=== PATIENT | male | born 1940 | race Caucasian/White ===

== ENCOUNTER 2017-08-10 15:24 | Emergency (ER) | payer OTHER ==
[~2017-08-10] VITALS: Ht 185.4 cm; Wt 88.5 kg
[~2017-08-10 15:24] MED LIST: ADULT LOW DOSE81 MG PO; ATIVAN0.5 MG PO; ATIVAN1 MG PO; BYSTOLIC20 MG PO; CENTRUM COMPLE1 EACH PO; CENTRUM TABLET1 TAB PO; CRESTOR10 MG PO; CRESTOR20 MG PO; DIOVAN HCT 3201 EAC1 PO; DIOVAN320 MG PO; EFFIENT10 MG PO; HYDROCHLOROTHIA25 M1 PO; OCEAN45 ML NASAL; PLAVIX 75 MG TA75 M1 PO; POLYSACCHARIDE150 M2 PO; VITAMIN D1000 UNI1 PO; VITAMIN D400 UNI1 PO
[2017-08-10] MEDS ORDERED: LOSARTAN POTASS25 MG PO (15:43)
[2017-08-10] MEDS ORDERED: CARVEDILOL25 MG PO (15:43)
[2017-08-10] MEDS ORDERED: VENTOLIN HFA INH8 GM INH (15:44)
== END 2017-08-10 16:48 | disposition home or self-care (01) ==
LOC: ER 15:24
DX: S01.81XA Laceration without foreign body of other part of head, initial encounter (principal); S29.9XXA Unspecified injury of thorax, initial encounter; S09.90XA Unspecified injury of head, initial encounter; I10 Essential (primary) hypertension; E78.00 Pure hypercholesterolemia, unspecified; I25.2 Old myocardial infarction; F32.9 Major depressive disorder, single episode, unspecified; F10.99 Alcohol use, unspecified with unspecified alcohol-induced disorder; J44.9 Chronic obstructive pulmonary disease, unspecified; G89.29 Other chronic pain; Z95.5 Presence of coronary angioplasty implant and graft; Z98.890 Other specified postprocedural states; W18.09XA Striking against other object with subsequent fall, initial encounter; Y93.89 Activity, other specified; Y92.89 Other specified places as the place of occurrence of the external cause; Y99.8 Other external cause status

== ENCOUNTER 2019-01-08 18:34 | Emergency (ER) | payer OTHER ==
[~2019-01-08] VITALS: Ht 185.4 cm; Wt 86.6 kg
[~2019-01-08 18:34] MED LIST changes: +CARVEDILOL25 MG PO; +LOSARTAN POTASS25 MG PO; +VENTOLIN HFA INH8 GM INH
[2019-01-08 20:50] VITALS: BP 159/46
== END 2019-01-08 20:56 | disposition home or self-care (01) ==
LOC: ER 18:34
DX: R04.0 Epistaxis (principal); I10 Essential (primary) hypertension; E78.00 Pure hypercholesterolemia, unspecified; F32.9 Major depressive disorder, single episode, unspecified; M10.9 Gout, unspecified; M54.9 Dorsalgia, unspecified; G89.29 Other chronic pain; J44.9 Chronic obstructive pulmonary disease, unspecified; Z95.5 Presence of coronary angioplasty implant and graft

== ENCOUNTER 2019-02-21 22:03 | Emergency (ER) | payer OTHER ==
[~2019-02-21] VITALS: Ht 185.4 cm; Wt 85.7 kg
[2019-02-22 00:44] VITALS: BP 144/40
== END 2019-02-22 00:45 | disposition home or self-care (01) ==
LOC: ER 22:03
DX: R04.0 Epistaxis (principal); I10 Essential (primary) hypertension; E78.00 Pure hypercholesterolemia, unspecified; I73.9 Peripheral vascular disease, unspecified; F32.9 Major depressive disorder, single episode, unspecified; L40.9 Psoriasis, unspecified; J44.9 Chronic obstructive pulmonary disease, unspecified; G89.29 Other chronic pain; M54.9 Dorsalgia, unspecified; M10.9 Gout, unspecified; Z95.5 Presence of coronary angioplasty implant and graft; Z98.890 Other specified postprocedural states

== ENCOUNTER 2019-03-22 10:17 | Emergency (ER) | payer OTHER ==
[~2019-03-22] VITALS: Ht 177.8 cm; Wt 77.1 kg
[2019-03-22 10:36] LABS: HEMATOCRIT 31.3 % (42.0-52.0); HEMOGLOBIN 10.6 gm/dL (14.0-18.0); MCH 31.2 pg (26.0-34.0); MCV 91.8 fL (80.0-100.0); RBC 3.41 mil/uL (4.50-6.00); RDW 19.3 % (10.5-14.5); WBC 6.2 thou/uL (4.0-11.0)
[2019-03-22 10:52] LABS: ANION GAP 9 mmol/L (7-16); BUN 69 mg/dL (7-18); CALCIUM 8.5 mg/dL (8.5-10.1); CHLORIDE 94 mmol/L (98-107); CO2 23 mmol/L (21-32); CREATININE 1.8 mg/dL (0.7-1.3); GLUCOSE 106 mg/dL (74-106); POTASSIUM 4.4 mmol/L (3.5-5.1); SODIUM 126 mmol/L (136-145)
[2019-03-22 11:01] LABS: TROPONIN-I <0.06 ng/mL (<0.06)
[2019-03-22 11:22] LABS: ABSOLUTE NEUTROPHILS 4.7 thou/uL (1.4-8.2); PLATELET COUNT 82 thou/uL (150-400)
[2019-03-22 11:23] LABS: ANISOCYTOSIS 1+
[2019-03-22 13:15] VITALS: BP 135/48
--- NOTE | 2019-03-25 22:19 | EKG ---
[place] [address] [email or web address] [address] ELECTROCARDIOGRAM REPORT Name: MOJGANKARYNA Lawson Room #: DEP Kaz#: [id number] ������������������ Admission: 03/22/19 ������������������ Attend Phys: Discharge: 03/22/19 ������������������ Date of : 42 Report #: [id number] ����������������������������������������������������������������� [id number] THIS REPORT FOR: //name// [facility] ED Test Date: 2019-03-22 Test Time: 10:18:25 Pat Name: KARYNA ULRICH Department: Room: Gender: Bit Sharpener: : 1940 Requested By: Ponce Butterfield Order Number: [id number] MD: Vladimir Parry Measurements Intervals [place] Rate: 56 P: -49 MN: 128 QRS: 80 QRSD: 120 T: 10 QT: 474 QTc: 458 Interpretive Statements Sinus or ectopic atrial rhythm Probable left ventricular hypertrophy Compared to ECG 12/01/2013 07:08:06 Ectopic atrial rhythm now present Sinus rhythm no longer present T-wave abnormality no longer present Electronically Signed On 03-25-2019 22:19:35 CDT by Vladimir Parry [email or web address] ��������������������������������������������� <ELECTRONICALLY SIGNED> ���������������������������������������� By: Vladimir Parry MD ��������������������������������������������� 03/25/19 2219 Vladimir Parry MD /OLIVER
== END 2019-03-22 13:15 | disposition home or self-care (01) ==
LOC: ER 10:17
PROVIDERS: Emergency Medicine
DX: I95.9 Hypotension, unspecified (principal); E87.1 Hypo-osmolality and hyponatremia; R00.1 Bradycardia, unspecified; I10 Essential (primary) hypertension; E78.00 Pure hypercholesterolemia, unspecified; I73.9 Peripheral vascular disease, unspecified; F32.9 Major depressive disorder, single episode, unspecified; M10.9 Gout, unspecified; L40.9 Psoriasis, unspecified; J44.9 Chronic obstructive pulmonary disease, unspecified; G89.29 Other chronic pain; M54.9 Dorsalgia, unspecified; Z86.2 Personal history of diseases of the blood and blood-forming organs and certain disorders involving the immune mechanism; Z98.890 Other specified postprocedural states

== ENCOUNTER 2019-05-19 11:07 | Inpatient (IN) | payer OTHER ==
[~2019-05-19] VITALS: Ht 185.4 cm; Wt 81.2 kg
[2019-05-19 11:08] VITALS: BP 128/34
[2019-05-19 11:34] LABS: ABSOLUTE NEUTROPHILS 3.6 thou/uL (1.4-8.2); BASOPHILS 0.5 % (0.0-2.0); HEMATOCRIT 29.4 % (42.0-52.0); HEMOGLOBIN 10.2 gm/dL (14.0-18.0); LYMPHOCYTES 18.8 % (24.0-44.0); MCHC 34.6 g/dL (28.0-37.0); MCV 92.6 fL (80.0-100.0); MONOCYTES 10.3 % (1.0-8.0); PLATELET COUNT 106 thou/uL (150-400); POLYS 69.4 % (36.0-66.0); RBC 3.18 mil/uL (4.50-6.00); RDW 18.9 % (10.5-14.5); WBC 5.2 thou/uL (4.0-11.0)
[2019-05-19 11:45] LABS: ANION GAP 10 mmol/L (7-16); BUN 31 mg/dL (7-18); CALCIUM 9.2 mg/dL (8.5-10.1); CHLORIDE 94 mmol/L (98-107); CO2 25 mmol/L (21-32); CREATININE 1.4 mg/dL (0.7-1.3); GLUCOSE 150 mg/dL (74-106); SODIUM 129 mmol/L (136-145)
[2019-05-19 11:53] LABS: APTT 26.3 Seconds (24.5-32.8); PROTIME 10.4 Seconds (9.3-11.4)
[2019-05-19 11:56] LABS: ALBUMIN 3.5 g/dL (3.4-5.0); DIRECT BILIRUBIN 0.3 mg/dL (<0.1-0.3); LIPASE 212 U/L (73-393); SGOT 30 U/L (15-37); SGPT 31 U/L (30-65); TOTAL BILIRUBIN 0.9 mg/dL (<0.1-1.0); TOTAL PROTEIN 6.7 g/dL (6.4-8.2); TROPONIN-I <0.06 ng/mL (<0.06)
[2019-05-19 12:23] LABS: URINE BILIRUBIN NEGATIVE (Negative); URINE BLOOD NEGATIVE (Negative); URINE CLARITY CLEAR; URINE COLOR YELLOW; URINE GLUCOSE-RANDOM* NEGATIVE (Negative); URINE KETONES NEGATIVE (Negative); URINE LEUKOCYTES NEGATIVE (Negative); URINE NITRITE NEGATIVE (Negative); URINE PROTEIN (DIPSTICK) 2+ (Negative); URINE UROBILINOGEN 0.2 E.U./dl (0.2-1.0)
[2019-05-19 12:36] VITALS: BP 154/46
[2019-05-19 12:49] LABS: BACTERIA None Seen /HPF (None Seen); CASTS None Seen /LPF (None Seen); CRYSTALS None Seen /LPF (None Seen); SQUAMOUS 0-3 Few /LPF (0-3); URINE RBC None Seen /HPF (0-2)
[2019-05-19 12:50] LABS: URINE WBC None Seen /HPF (0-5)
[2019-05-19 15:16] VITALS: BP 177/56
[2019-05-19 18:18] VITALS: BP 152/49
--- NOTE | 2019-05-19 18:44 | NUR ---
ASSUMED CARE OF PT APPROX. 1500, PT A&OX4, VSS, DENIES PAIN. PT HAS SOA WITH EXERTION, HOB RAISED, 2L OF OXYGEN, NO SIGNS OF DISTRESS. FLUIDS AND ANTIBIOTICS RUNNING ORDERED. WILL CONTINUE TO MONITOR.
--- NOTE | 2019-05-20 02:56 | NUR ---
patient aox4 makes needs known. patient is on 2l of oxygen no soa or distress noted this shift. fall precaution in place. patient in bed asleep at this time breathing regular and unlaboured.
[2019-05-20 04:04] VITALS: BP 140/40
[2019-05-20 06:04] LABS: HEMATOCRIT 24.3 % (42.0-52.0); HEMOGLOBIN 8.4 gm/dL (14.0-18.0); MCH 31.7 pg (26.0-34.0); MCHC 34.4 g/dL (28.0-37.0); MCV 92.3 fL (80.0-100.0); RBC 2.64 mil/uL (4.50-6.00); RDW 18.9 % (10.5-14.5)
[2019-05-20 06:19] LABS: CALCIUM 8.2 mg/dL (8.5-10.1); POTASSIUM 4.1 mmol/L (3.5-5.1)
[2019-05-20 08:00] VITALS: BP 158/53
--- NOTE | 2019-05-20 09:47 | EKG ---
[place] [address] [place] [address] ELECTROCARDIOGRAM REPORT Name: KARYNA ULRICH Room #: 455-P ADM IN M.R.#: [id number] ������������������ Admission: 05/19/19 ������������������ Attend Phys: Allen Orantes Discharge: ������������������ Date of : 42 Report #: [id number] ����������������������������������������������������������������� [id number] THIS REPORT FOR: //name// [facility] ED Test Date: 2019-05-19 Test Time: 11:28:14 Pat Name: KARYNA ULRICH Department: Room: [facility] Gender: M Staff Rn: JERMAINE : 1940 Requested By: Jefferson Rdz Order Number: [id number] MD: Mikael Castelan Measurements Intervals [place] Rate: 59 P: 0 MT: QRS: 80 QRSD: 121 T: -89 QT: 430 QTc: 426 Interpretive Statements Baseline artifact limits interpretation Possible junctional rhythm Poor R wave progression Nonspecific ST and T wave abnormality No previous ECGs available for comparison Electronically Signed On 05-20-2019 9:47:15 CDT by Mikael Castelan [email or web address] ��������������������������������������������� <ELECTRONICALLY SIGNED> ���������������������������������������� By: Mikael Castelan MD, [facility] ��������������������������������������������� 05/20/19 0947 1128 27 Mikael Castelan MD, FACC /EPI
--- NOTE | 2019-05-20 12:50 | NUR ---
TOWARDS POC PT A/O X4, VSS, AFEBRILE, DENIES PAIN. PT SOB IMPROVING PER PT. REMAINED ON O2. NO CONCERNS VOICED. WILL CONTINUE TO MONITOR.
[2019-05-20 15:00] VITALS: BP 160/47
--- NOTE | 2019-05-21 01:02 | NUR ---
Assumed care at 1845. Pt resting in bed. AOX4. VSS. Pt is no longer on Oxygen. Gave him his sleeping pills. Requested not to be woken up for midnight vitals. Stated he hasnt had a good sleep for over a month. No identified needs at the moment. Call light within reach. Will continue to monitor.
[2019-05-21 05:14] VITALS: BP 149/52
[2019-05-21 08:03] VITALS: BP 180/55
[2019-05-21] MEDS ORDERED: CEFUROXIME250 MG PO (08:45)
--- NOTE | 2019-05-21 13:45 | NUR ---
Assumed pt care this am, pt is able to ambulate from his bed to the toilet and get to his recliner with ease and a steady gait. Pt was able to take a shower and shave on his own. No signs or distress or shortness of air has been noted. Though pt did express his concern on being DC when he feels he has not progressed well towards his goals and feels excatly the same as of when he entered. Pt is also questioning why another x-ray has not been done to see progress from initial adnission x-ray to pre DC since he is beibg DC today by Dr. rOantes and why a blood bank technician has not come as well. TExt DR. Orantes about this concern awaiting further instructions.
[2019-05-21 18:07] VITALS: BP 155/62
[2019-05-21 19:36] VITALS: BP 182/76
--- NOTE | 2019-05-22 04:48 | NUR ---
ASSUMED CARE OF PT @1900. PT A&OX4 THIS SHIFT DENIES PAIN, CHEST PAIN, N/V. ON 2L OF O2. BP ON ASSESSMENT IS 182/76 BP MEDS GIVEN. EVENING MEDS GIVEN AND POC DONE. PT STATED WANTED TO SLEEP WELL TONIGHT. ACTIVITIES SPACED OUT AND CARE PROVIDED. CALL LIGHT WITHIN REACH AND PT LETS NEEDS KNOWN. WILL CONTINUE TO MONITOR TILL EOS
[2019-05-22 05:37] VITALS: BP 188/72
[2019-05-22 07:40] VITALS: BP 187/76
--- NOTE | 2019-05-22 15:24 | NUR ---
PT ADMITTED RELATED TO HYPONATERMIA, PNUMONIA, WEAKNESS. CM REVIEWED CHART AND SPOKE WITH CARE TEAM. CM MET WITH PT AT BEDSIDE THIS DAY. PT INDICATED HE LIVES ALONE IN A HOUSE WITH 2 STEPS TO ENTER AND NO STEPS INSIDE. 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 PT INDICATED HE HAS HOME O2 THROUGH [employer] AND HAD WORN 2L NOC SHOTWELD OPERATOR. PT INDICATED HE HAS A CANE AND A WALKER AT HOME SHOULD HE NEED THEM. PT INDICATED HIS PCP IS DR. KRISTEN BILL AT [facility]. PT INDICATED HE ANTICIPATES RETURNING HOME ONCE MEDICALLY STABLE. CM TO FOLLOW INDICATED WITH DC PLANNING.
--- NOTE | 2019-05-22 18:57 | NUR ---
Assumed pt care this am. pt bp has been going down, lasix and other medication have been resumed. Pt denies any pain for this shift, pt is able to ambulate with a steady gait on his won with O2. Still experiences SOA upon exertion. POC followed, request for chamge of hospitalist made by the pt.
[2019-05-22 19:38] VITALS: BP 150/57
[2019-05-23 04:20] VITALS: BP 134/45
[2019-05-23 05:23] LABS: HEMATOCRIT 25.4 % (42.0-52.0); HEMOGLOBIN 8.6 gm/dL (14.0-18.0); MCH 31.3 pg (26.0-34.0); MCHC 33.7 g/dL (28.0-37.0); MCV 92.8 fL (80.0-100.0); RBC 2.73 mil/uL (4.50-6.00); RDW 18.3 % (10.5-14.5); WBC 9.9 thou/uL (4.0-11.0)
[2019-05-23 05:34] LABS: ALBUMIN 2.6 g/dL (3.4-5.0); CALCIUM 8.2 mg/dL (8.5-10.1); CREATININE 1.2 mg/dL (0.7-1.3); PHOSPHORUS 4.4 mg/dL (2.5-4.9); POTASSIUM 4.7 mmol/L (3.5-5.1)
--- NOTE | 2019-05-23 06:08 | NUR ---
ASSUMED CARE OF PT. @1900 PT A&OX4. DENIES PAIN. POC DONE AND MEDS GIVEN. BP MEDS ALSO GIVEN FOR MANAGEMENT. ABDOMEN SLIGHTLY DISTENDED. PT STABLE AND SLEPT THROUGH THE NIGHT WILL CONTINUE TO MONITOR TILL EOS
[2019-05-23 07:25] VITALS: BP 147/56
[2019-05-23 13:40] VITALS: BP 147/51
--- NOTE | 2019-05-23 16:03 | NUR ---
CARE TEAM INDICATED THAT PT WILL LIKELY BE MEDICALLY STABLE TO DC HOME TOMORROW. CM TO FOLLOW INDICATED WITH DC PLANNING.
--- NOTE | 2019-05-23 18:19 | HC ---
[facility] [place] [address] CONSULTATION Name: KARYNA ULRICH Room #: 455-P ADM IN M.R.#: [id number] Admission: 05/19/19 ������������������ Attend Phys: Allen Orantes Discharge: ������������������ Date of : 42 Report #: [id number] THIS REPORT FOR: //name// CC: FAM physician/PCP Allen Orantes PULMONARY CONSULTATION REFERRING PHYSICIAN: Dr. Orantes. REASON FOR REFERRAL: Pneumonia. HISTORY OF PRESENT ILLNESS: The patient is a 78-year-old white male who was admitted on 05/19/2019 with pneumonia. A pulmonary consultation was requested given no significant improvements. The patient has extensive medical history including recent repair of an abdominal aortic aneurysm at [facility]. He has smoked in the past, quit few years ago. He has never been told that he has chronic lung disease. He was seen by a gymnastics instructor at . Workup was not complete. He was in his usual state of health until about a week ago, started to develop increasing dyspnea. He does not remember having a productive cough. Denies any recent chest pain, nausea, vomiting, or diarrhea. Chest x-ray on admission revealed right upper lobe infiltrates. He is somewhat better since admission, but remains dyspneic. PAST MEDICAL HISTORY: Notable for coronary artery disease with past history of myocardial infarction in 2013, peripheral vascular disease including carotid artery stenosis, abdominal aortic aneurysm repair, endarterectomy involving the right femoral artery, stent placement in the left popliteal artery. Other vascular procedures including arthrectomy, cardiac stents, hypertension, hypercholesterolemia, depression, gout, history of tobacco use, quit a few years ago, atrophic left kidney, and iron deficiency anemia. PAST SURGICAL HISTORY: Status post prior back surgery, rotator cuff surgery in the left, tonsillectomy, and vein stripping. Vascular procedures as mentioned above. ALLERGIES: None to medications. HOME MEDICATIONS: Reviewed. This include Ativan 1 mg q.a.m., multivitamins, Crestor 20 mg once a day, hydrochlorothiazide 25 mg once a day, Coreg 25 mg p.o. b.i.d., losartan 12.5 mg once a day, and albuterol 2 puffs p.r.n. FAMILY HISTORY: Noncontributory. [facility] [address] [place] [address] CONSULTATION Name: KARYNA ULRICH Room #: 455-P [facility] IN .R.#: [id number] Admission: 05/19/19 ������������������ Attend Phys: Allen Orantes Discharge: ������������������ Date of : 42 Report #: [id number] SOCIAL HISTORY: Tobacco history as mentioned above. He denies any alcohol use. He is . REVIEW OF SYSTEMS: As mentioned above, otherwise 10-point system review negative. PHYSICAL EXAMINATION: GENERAL: He is awake, alert, in no distress. VITAL SIGNS: Temperature is 98 degrees Fahrenheit, pulse is 70, respiratory rate is 18, blood pressure 188/70 mmHg, and saturation 99%. HEENT: Normocephalic, atraumatic. NECK: Supple, without lymphadenopathy or thyromegaly. CHEST: Breath sounds are fair. Few scattered crackles in the bases. No wheezes. CARDIOVASCULAR: Normal S1, S2. There are no murmurs or gallop. There is no JVD, no carotid bruit. Pulses are 2+/4+ bilaterally. ABDOMEN: Soft, nontender, no organomegaly or masses felt. GENITOURINARY: Deferred. RECTAL: Deferred. EXTREMITIES: There is no edema, cyanosis, or clubbing. LABORATORY DATA: Chest x-ray was reviewed. Initial chest x-ray shows right upper lobe infiltrate, poor followup chest x-ray. Continue shows mild right upper lobe infiltrates. Electrolytes are normal. Creatinine is 1.0, on admission it was 1.4. Liver enzymes are grossly unremarkable. WBC 5000, hemoglobin is 10.2, and platelets mildly decreased. IMPRESSION: 1. Pneumonia, right upper lobe, slowly improving. 2. History of tobacco use. No past history of chronic obstructive pulmonary disease, but suspicious. 3. Coronary artery disease with prior stent placement, diastolic dysfunction. 4. Peripheral vascular disease as outlined above. RECOMMENDATION: Continue antibiotic therapy. Would suggest bronchodilator therapy. DVT and GI prophylaxis recommended. The patient should improve over time. We will recommend followup chest x-ray in approximately 2-3 weeks to assure clearance of the infiltrates. ��������������������������������������������� <ELECTRONICALLY SIGNED> ���������������������������������������� By: Shukri Ferrara MD ��������������������������������������������� 05/23/19 1819 16 0011 Shukri Ferrara MD /nt
[2019-05-23 19:13] VITALS: BP 127/71
--- NOTE | 2019-05-23 19:50 | NUR ---
Assumed pt care this am, abdominal distention and difficulty in breathing has been better for him today and was verbalized by the pt as well. VS have been stable anf BP is going down with in normal limits. I and O were monitored. Pt was able to ambulate the halls with a walker and with out O2 and there were not signs of distress. diet is well tolrated , POC followed. No signs of distress nor complaints have been noted for this shift. X-ray of the chest is for tomoorrow.
[2019-05-24 03:57] VITALS: BP 143/43
--- NOTE | 2019-05-24 04:24 | NUR ---
ASSUMED CARE OF PT AT 1900HRS. PT IS AOX4 AND CALLS FOR HELP NEEDED. PT IS UP AD MACHO AND DENIES ANY PAIN. NO S/S OF ACUTE DISTRESS. ANTICIPATE DISCHARGE IN THE AM. WILL CONTINUE TO MONITOR.
[2019-05-24 05:44] LABS: HEMATOCRIT 25.1 % (42.0-52.0); HEMOGLOBIN 8.6 gm/dL (14.0-18.0); MCH 31.3 pg (26.0-34.0); MCV 91.8 fL (80.0-100.0); RBC 2.74 mil/uL (4.50-6.00); RDW 17.6 % (10.5-14.5); WBC 8.2 thou/uL (4.0-11.0)
[2019-05-24 05:56] LABS: CALCIUM 8.4 mg/dL (8.5-10.1); CREATININE 1.2 mg/dL (0.7-1.3); POTASSIUM 4.6 mmol/L (3.5-5.1)
[2019-05-24 08:23] VITALS: BP 167/54
[2019-05-24] MEDS ORDERED: COREG25 MG PO (12:48)
[2019-05-24] MEDS ORDERED: LEVAQUIN 750 M750 MG PO (12:48)
[2019-05-24] MEDS ORDERED: MIRALAX17 GM PO (12:48)
[2019-05-24] MEDS ORDERED: LASIX 40 MG TAB40 M2 PO (12:48)
[2019-05-24] MEDS ORDERED: PREDNISONE 10 M10 MG PO (12:48)
[2019-05-24 13:42] VITALS: BP 167/54
[2019-05-24] MEDS ORDERED: TRAZODONE HCL50 MG PO (14:27)
--- NOTE | 2019-05-24 14:53 | NUR ---
PATIENT STATED FEELING MUCH BETTER TODAY. LUNGS DIMINISHED. UP INDEPENDENTLY AND TOLERATING WELL. STATED READY TO GO HOME. DISMISSED HOME IN STABLE CONDITION.
== END 2019-05-24 15:44 | disposition home or self-care (01) | DRG 193 ==
LOC: ER 11:07 → 4W 12:37 → EROBS 12:37 → 4W 14:04 → ENTRNSPT 05-24 14:30 → EDTRNSPTSTS 05-24 14:45 → 4W 05-24 15:44
PROVIDERS: Hospitalist; Nurse Practitioner; ADMIT Hospitalist
DX: J18.1 Lobar pneumonia, unspecified organism (principal); N17.0 Acute kidney failure with tubular necrosis; E87.1 Hypo-osmolality and hyponatremia; Q27.30 Arteriovenous malformation, site unspecified; I50.30 Unspecified diastolic (congestive) heart failure; J44.0 Chronic obstructive pulmonary disease with (acute) lower respiratory infection; E78.00 Pure hypercholesterolemia, unspecified; I73.9 Peripheral vascular disease, unspecified; F32.9 Major depressive disorder, single episode, unspecified; M10.9 Gout, unspecified; E61.1 Iron deficiency; E55.9 Vitamin D deficiency, unspecified; D64.9 Anemia, unspecified; G89.29 Other chronic pain; M54.9 Dorsalgia, unspecified; E86.1 Hypovolemia; M51.36 Other intervertebral disc degeneration, lumbar region; I11.0 Hypertensive heart disease with heart failure; I25.10 Atherosclerotic heart disease of native coronary artery without angina pectoris; Z87.891 Personal history of nicotine dependence; I25.2 Old myocardial infarction; Z95.820 Peripheral vascular angioplasty status with implants and grafts; Z95.5 Presence of coronary angioplasty implant and graft
CPT/HCPCS: 10040; 10045

== ENCOUNTER 2019-12-11 11:26 | Inpatient (IN) | payer OTHER ==
[~2019-12-11] VITALS: Ht 185.4 cm; Wt 88.8 kg
[~2019-12-11 11:26] MED LIST changes: +CEFUROXIME250 MG PO; +COREG25 MG PO; +LASIX 40 MG TAB40 M2 PO; +LEVAQUIN 750 M750 MG PO; +MIRALAX17 GM PO; +PREDNISONE 10 M10 MG PO; +TRAZODONE HCL50 MG PO
[2019-12-11 11:27] VITALS: BP 137/44
[2019-12-11 11:55] LABS: HEMATOCRIT 23.5 % (42.0-52.0); HEMOGLOBIN 7.8 gm/dL (14.0-18.0); MCH 32.5 pg (26.0-34.0); MCHC 33.2 g/dL (28.0-37.0); MCV 97.7 fL (80.0-100.0); PLATELET COUNT 113 thou/uL (150-400); RDW 15.3 % (10.5-14.5); WBC 5.7 thou/uL (4.0-11.0)
[2019-12-11 12:03] LABS: ANION GAP 6 mmol/L (7-16); BUN 38 mg/dL (7-18); CALCIUM 8.3 mg/dL (8.5-10.1); CHLORIDE 100 mmol/L (98-107); CO2 29 mmol/L (21-32); CREATININE 1.7 mg/dL (0.7-1.3); GLUCOSE 99 mg/dL (74-106); POTASSIUM 4.6 mmol/L (3.5-5.1); SODIUM 135 mmol/L (136-145)
[2019-12-11 12:13] LABS: ALBUMIN 3.3 g/dL (3.4-5.0); SGOT 24 U/L (15-37); SGPT 25 U/L (30-65); TOTAL BILIRUBIN 0.4 mg/dL (<0.1-1.0); TOTAL PROTEIN 6.1 g/dL (6.4-8.2); TROPONIN-I <0.06 ng/mL (<0.06)
[2019-12-11 13:06] LABS: ABSOLUTE NEUTROPHILS 4.2 thou/uL (1.4-8.2); PLATELET ESTIMATE NORMAL
[2019-12-11 13:18] VITALS: BP 181/58
[2019-12-11 15:59] VITALS: BP 177/61
[2019-12-11 16:14] VITALS: BP 185/78
[2019-12-11] MEDS ORDERED: FLEXERIL PO (16:32)
[2019-12-11] MEDS ORDERED: DOXAZOSIN MESYLA4 MG PO (16:33)
[2019-12-11] MEDS ORDERED: SINGULAIR 10 MG10 M1 PO (16:34)
[2019-12-11 19:20] VITALS: BP 146/64
[2019-12-11 23:29] VITALS: BP 148/54
[2019-12-12 04:09] VITALS: BP 155/59
[2019-12-12 04:26] LABS: CALCIUM 8.1 mg/dL (8.5-10.1); CREATININE 1.8 mg/dL (0.7-1.3); POTASSIUM 4.2 mmol/L (3.5-5.1)
[2019-12-12 04:35] LABS: HEMATOCRIT 21.7 % (42.0-52.0); HEMOGLOBIN 7.3 gm/dL (14.0-18.0); MCH 32.6 pg (26.0-34.0); MCHC 33.4 g/dL (28.0-37.0); MCV 97.5 fL (80.0-100.0); RBC 2.23 mil/uL (4.50-6.00); RDW 15.1 % (10.5-14.5); WBC 4.8 thou/uL (4.0-11.0)
--- NOTE | 2019-12-12 04:48 | NUR ---
Pt. stated he didn't sleep much despite sleep med. Flexeril given per his request for back spasm which he had for years. O2 at 3L/NC and maintaining O2 sat greater than 90%. No respiratory distress. HR has been regular with BBB and occasional PVC's. Voiding per toilet and at times urinal. UA specimen and sptum sample sent to lab. Bed alarm on for safety. Will continue to monitor.
[2019-12-12 07:10] VITALS: BP 138/49
[2019-12-12 11:12] VITALS: BP 151/58
--- NOTE | 2019-12-12 15:48 | 2DMMODE ---
[facility] [place] [address] 2 D/M-MODE ECHOCARDIOGRAM Name: KARYNA ULRICH Room #: 359-P ADM IN M.R.#: [id number] Admission: 12/11/19 Attend Phys: Ty Aden MD Discharge: Date of : 42 Report #: [id number] THIS REPORT FOR: cc: Rena Wright MD, Carnie MD Lundgren,Mikael Ramires MD [facility] ~ THIS REPORT FOR: //name// APPROVED REPORT Study performed: 12/12/2019 14:27:37 EXAM: Comprehensive 2D, Doppler, and color-flow Echocardiogram Patient Location: Echo lab Room #: 359 Status: routine BSA: 2.03 HR: 86 bpm BP: 138/49 mmHg Rhythm: NSR Other Information Study Quality: Good Indications COPD Atrial Fibrillation CAD Hypertension/HDD CABG 2D Dimensions RVDd: 37.85 mm IVSd: 14.08 (7-11mm) LVOT Diam: 20.38 (18-24mm) LVDd: 47.87 mm PWd: 13.95 (7-11mm) LVDs: 42.74 (25-40mm) Aortic Root: 31.32 mm IVC: 26.00 mm Volumes Left Atrial Volume (Systole) Single Plane 4CH: 95.16 mL Single Plane 2CH: 104.86 mL LA ESV Index: 55.00 mL/m2 [facility] [address] [place] [address] 2 D/M-MODE ECHOCARDIOGRAM Name: KARYNA ULRICH Room #: 359-P ADM IN M.R.#: [id number] Admission: 12/11/19 Attend Phys: Ty Aden MD Discharge: Date of : 42 Report #: [id number] Aortic Valve AoV Peak Ryan.: 2.04 m/s AO Peak Gr.: 16.61 mmHg LVOT Max P.92 mmHg LVOT Max V: 0.99 m/s ELIANE Vmax: 1.58 cm2 Mitral Valve E/A Ratio: 1.9 MV Decel. Time: 128.35 ms MV E Max Ryan.: 1.40 m/s MV A Ryan.: 0.74 m/s MV PHT: 37.22 ms IVRT: 59.98 ms Pulmonary Valve PV Peak Ryan.: 1.10 m/s PV Peak Gr.: 4.88 mmHg Pulmonary Vein P Vein S: 0.36 m/s P Vein A: 0.16 m/s P Vein D: 0.88 m/s P Vein A Dur.: 64.6 msec P Vein S/D Ratio: 0.41 Tricuspid Valve TR Peak Ryan.: 3.97 m/s TR Peak Gr.: 63.00 mmHg PA Pressure: 73.00 mmHg Left Ventricle The left ventricle is normal size. Mild concentric left ventricular hypertrophy. The left ventricular systolic function is normal. The left ventricular ejection fraction is within the normal range. LVEF is 50%. Mild hypokinesis involving the base of the inferior wall The left ventricular diastolic function is abnormal. Right Ventricle The right ventricle is normal size. The right ventricular systolic function is normal. Atria Left atrium is dilated. Right atrium is dilated. Aortic Valve TAVR prosthetic valve No aortic regurgitation is present. There is no aortic valvular stenosis. Mitral Valve [facility] [address] [address] 2 D/M-MODE ECHOCARDIOGRAM Name: KARYNA ULRICH Room #: 359-P ADM IN ..#: [id number] Admission: 12/11/19 Attend Phys: Ty Aden MD Discharge: Date of : 42 Report #: [id number] The mitral valve is normal in structure. Mild mitral regurgitation. No evidence of mitral valve stenosis. Tricuspid Valve The tricuspid valve is normal in structure. There is moderate tricuspid regurgitation. Estimated PAP 70 mmHg. There is severe pulmonary hypertension. Pulmonic Valve The pulmonary valve is normal in structure. There is no pulmonic valvular regurgitation. Great Vessels The aortic root is normal in size. IVC is dilated and collapses <50% with inspiration. Pericardium There is no pericardial effusion. <Conclusion> The left ventricular systolic function is normal. LVEF is 50%. Mild hypokinesis involving the base of the inferior wall Both atria are dilated. TAVR prosthetic valve. No aortic regurgitation or stenosis. The mitral valve is normal in structure. Mild mitral regurgitation. There is moderate tricuspid regurgitation. Estimated pulmonary artery pressure of 70 mmHg. There is no pericardial effusion. <ELECTRONICALLY SIGNED> By: Mikael Castelan MD, FACC 12/12/19 1547 1547 154 Mikael Castelan MD, FACC /INF
--- NOTE | 2019-12-12 17:25 | NUR ---
INITIAL ASSESSMENT: SW reviewed chart and spoke with nursing and attending physician. Pt was admitted from home due to pneumonia/acute on chronic respiratory failure. Pt with hx of iron deficiency. Pt sees Hem/Onc, Dr. Bernstein. Pt is currently on IV abx an IV steroids. SW met with pt and his sister at bedside. Introduced role of SW. Pt is alert/orientated x 4. Pt reports he lives at home alone. 2 steps to enter and No steps inside. Pt is on nocturnal O2. Home O2 provided by [employer]. Pt states he has a cane at home that he will use occasionally. Pt's PCP is Dr. Rena Wright at [facility]. No hx of HH services or post-acute placement. Pt's goal is to return home. SW is following to assist as needed with discharge planning.
--- NOTE | 2019-12-12 18:43 | NUR ---
ASSUMED PATIENT CARE AT 0700. NO DISDRESS NOTED. SLOWLY TOWARDS POC GOALS.
[2019-12-12 19:28] VITALS: BP 154/58
[2019-12-13 03:47] VITALS: BP 167/69
[2019-12-13 05:54] LABS: HEMATOCRIT 23.2 % (42.0-52.0); HEMOGLOBIN 7.8 gm/dL (14.0-18.0); MCH 33.1 pg (26.0-34.0); MCHC 33.8 g/dL (28.0-37.0); RBC 2.36 mil/uL (4.50-6.00); RDW 15.1 % (10.5-14.5); WBC 10.8 thou/uL (4.0-11.0)
[2019-12-13 06:03] LABS: CALCIUM 8.4 mg/dL (8.5-10.1); CREATININE 1.5 mg/dL (0.7-1.3); POTASSIUM 4.4 mmol/L (3.5-5.1)
--- NOTE | 2019-12-13 07:32 | NUR ---
PT MAKING SLOW PROGRESS TOWARDS GOALS. ON O2 AT 3L PER NC. DENIES ANY SOA WHILE AT REST. DOES REPORT THAT HE STILL GETS SOA WITH ACTIVITY. IN BED THROUGHOUT THE NIGHT.
[2019-12-13 07:37] VITALS: BP 158/70
[2019-12-13 11:07] VITALS: BP 151/62
[2019-12-13 15:36] VITALS: BP 153/44
--- NOTE | 2019-12-13 16:17 | NUR ---
assumed patient care at 0700. a/o x4. denies sob. progressing towards poc goals.
[2019-12-13 19:35] VITALS: BP 167/64
[2019-12-14 04:20] VITALS: BP 156/61
[2019-12-14 06:19] LABS: HEMATOCRIT 23.8 % (42.0-52.0); HEMOGLOBIN 7.8 gm/dL (14.0-18.0); MCHC 32.7 g/dL (28.0-37.0); MCV 97.7 fL (80.0-100.0); RBC 2.44 mil/uL (4.50-6.00); RDW 15.4 % (10.5-14.5); WBC 9.4 thou/uL (4.0-11.0)
[2019-12-14 06:39] LABS: CALCIUM 8.5 mg/dL (8.5-10.1); CREATININE 1.3 mg/dL (0.7-1.3); POTASSIUM 4.2 mmol/L (3.5-5.1)
[2019-12-14 08:03] VITALS: BP 168/69
--- NOTE | 2019-12-14 16:06 | NUR ---
SW reviewed chart and spoke with nursing and attending physician. Pt is progressing towards goals for discharge. Plan is for pt to discharge home when medically stable. No discharge needs identified at this time, but SW is available to assist should needs arise.
--- NOTE | 2019-12-14 16:20 | NUR ---
assumed patient care at 1300. a/o x4. no disdress noted. transfer to [facility] at 1600.
--- NOTE | 2019-12-14 16:47 | NUR ---
PT ARRIVED ON UNIT, AOX4, VSS. PT REPORTS BLE KNEE PAIN, GAVE TYLENOL PER ORDER. PT ON 2L/O2 VIA NC. PT TRANSFERRED TO BED WITH SB ASSIST. CALL LIGHT/PERSONAL ITEMS IN REACH. WILL CONTINUE TO MONITOR.
--- NOTE | 2019-12-15 05:17 | NUR ---
ASSUMED CARE OF PATIENT AT APPROX 1999. ASSESSMENT CHARTED. MEDICATIONS ADMINISTERED PER JAN. PATIENT IS A&OX4, VSS; O2 SATS WNL ON 2L. NO SOA NOTED AT THIS TIME. PATIENT C/O PAIN AT BACK; PAIN MEDICATION OFFERED-PATIENT OPTED FOR MUSCLE RELAXANT INSTEAD. PATIENT C/O "KNEES NOT WORKING TONIGHT". PATIENT WAS OFFERED URINAL AND DECIDED TO NOT GET UP THIS SHIFT. PATIENT WOULD LIKE TO DISCUSS KNEE DISCOMFORT WITH DR. SIMPSON. CBC AND BMP ORDERED THIS AM. ABX RUNNING ON R AC W NO ISSUES. PATIENT VOICES NO OTHER NEED AND WOULD LIKE TO REST TONIGHT. REQUESTED BREATHING TX HELD UNTIL MORNING. FALL PRECAUTIONS IN PLACE. PLAN IS TO D/C BACK HOME ONCE MEDICALLY STABLE. WILL CONTINUE TO MONITOR AND FOLLOW PLAN OF CARE.
--- NOTE | 2019-12-15 06:25 | NUR ---
THIS NURSE AGREES WITH ASSESSMENT AND NOTES BY SHEET METAL LAYOUT MECHANIC ON THIS PATIENT.
[2019-12-15 07:10] LABS: HEMATOCRIT 25.4 % (42.0-52.0); HEMOGLOBIN 8.2 gm/dL (14.0-18.0); MCH 31.8 pg (26.0-34.0); MCHC 32.4 g/dL (28.0-37.0); MCV 98.2 fL (80.0-100.0); RBC 2.59 mil/uL (4.50-6.00); RDW 15.4 % (10.5-14.5)
[2019-12-15 07:15] VITALS: BP 169/64
[2019-12-15 07:24] LABS: CALCIUM 8.5 mg/dL (8.5-10.1); CREATININE 1.4 mg/dL (0.7-1.3); POTASSIUM 4.2 mmol/L (3.5-5.1)
--- NOTE | 2019-12-15 13:25 | NUR ---
ASSUMED CARE OF PT AT 0700. PT AOX4, VSS, PAIN IN BLE WHEN AMBULATING BUT GOES AWAY WHEN HE SITS DOWN. PT PULLED OUT IV DURING SHOWER. NEW IV PLACED IN LEFT FA, ANTIBIOTIC & IRON THERAPY RECEIVED. O2 PER NC AT 2L, TOLERATING DIET. CALL LIGHT/PERSONAL ITEMS IN REACH. PT CALLS APPROP. WILL CONTINUE TO MONITOR.
[2019-12-15 17:25] VITALS: BP 183/68
--- NOTE | 2019-12-15 18:01 | NUR ---
PT BP 183/68 HR 67, CALLED DR. STRANGE RECEIVED ORDER FOR HYDRALAZINE 10MG IV. PT HAD NO OTHER S/S OF DISTESS. PT CURRENTLY EATING DINNER, WILL RECHECK AND MONITOR PT.
[2019-12-15 18:21] VITALS: BP 163/62
[2019-12-15 19:06] VITALS: BP 182/69
[2019-12-15 20:35] VITALS: BP 174/64
[2019-12-16 03:39] VITALS: BP 158/73
--- NOTE | 2019-12-16 06:35 | NUR ---
PATIENT ALERT AND ORIENTED X4. VOIDING PER URINAL. 02NC WITH NO SOA NOTED WHILE IN THE BED. BP ELEVATED AT BEGINNING OF SHIFT 182/69, MEDICATED AND BP THIS AM IS 158/73. IVPB INFUSED W/O COMPLICATION. PATIENT DOES WEAR 02NC AT HOME AND MAY DISCHARGE TODAY. RT TREATMENTS PER ORDER. WILL MONITOR.
[2019-12-16 06:45] LABS: CALCIUM 8.5 mg/dL (8.5-10.1); CREATININE 1.3 mg/dL (0.7-1.3); POTASSIUM 4.5 mmol/L (3.5-5.1)
[2019-12-16 08:46] VITALS: BP 176/72
--- NOTE | 2019-12-16 08:56 | NUR ---
PT REMAINS ON 2L NC-BASLEINE. REPORTS BREATHING EASIER POST BREATHING TREATMENT. EXPRESSES DESIRE TO DISCHARGE HOME TODAY. PT CONCERNED ABOUT HIS CREATININE, EXPRESSES PLAN TO F/U WITH HIS PROVIDERS OUTPATIENT TO MAINTAIN ADEQUATE KIDNEY FUNCTION. PT UPRIGHT IN BED EATING BREAKFAST, DENIES ANY NEEDS AT THIS TIME. VOIDING PER URINAL AT BEDSIDE. DENIES PAIN AT THIS TIME.
[2019-12-16 12:39] VITALS: BP 170/69
[2019-12-16] MEDS ORDERED: AUGMENTIN 875-1 EACH PO (14:22)
[2019-12-16 17:59] VITALS: BP 170/69
[2019-12-16 18:07] VITALS: BP 158/68
--- NOTE | 2019-12-20 11:21 | EKG ---
[facility] [place] [address] ELECTROCARDIOGRAM REPORT Name: KARYNA ULRICH Room #: 405-P [facility] IN M.R.#: [id number] Admission: 12/11/19 Attend Phys: Ty Aden MD Discharge: 12/16/19 Date of : 42 Report #: [id number] THIS REPORT FOR: cc: Rena Wright MD, Carnie MD Couchonnal,Vladimir Hawk MD ~ THIS REPORT FOR: //name// [facility] Test Date: 2019-12-12 Test Time: 08:26:58 Pat Name: KARYNA ULRICH Department: Room: 359 P Gender: M Stone Processing Machine Operator: Gil WU : 1940 Requested By: Sandy Claros Order Number: [id number] MD: Vladimir Parry Measurements Intervals [place] Rate: 93 P: -3 AL: 139 QRS: 100 QRSD: 166 T: -26 QT: 423 QTc: 527 Interpretive Statements Sinus rhythm Ventricular trigeminy RBBB and LPFB Borderline ST depression, lateral leads Compared to ECG 05/19/2019 11:28:14 Electronically Signed On 12-12-2019 8:45:43 PHARMACEUTICAL SCIENTIST by Vladimir Parry [email or web address] <ELECTRONICALLY SIGNED> By: Vladimir Parry MD 12/12/1944 5 5 Vladimir Parry MD /EPI
--- NOTE | 2019-12-20 11:21 | EKG ---
[facility] [place] [address] ELECTROCARDIOGRAM REPORT Name: KARYNA ULRICH Room #: 405-P [facility] IN M.R.#: [id number] Admission: 12/11/19 Attend Phys: Ty Aden MD Discharge: 12/16/19 Date of : 42 Report #: [id number] THIS REPORT FOR: cc: Rena Wright MD, Carnie MD Couchonnal,Vladimir Hawk MD ~ THIS REPORT FOR: //name// [facility] ED Test Date: 2019-12-11 Test Time: 11:36:17 Pat Name: KARYNA ULRICH Department: Room: 359 Gender: M Creative Coordinator: KANE : 1940 Requested By: Maria Eugenia Valencia Order Number: [id number] MD: Vladimir Parry Measurements Intervals [place] Rate: 65 P: MN: QRS: 89 QRSD: 165 T: -14 QT: 473 QTc: 492 Interpretive Statements sinus rhythm Right bundle branch block Inferior infarct, age indeterminate Baseline wander in lead(s) I,II,aVR,V6 Compared to ECG 05/19/2019 11:28:14 Electronically Signed On 12-12-2019 8:38:28 SUPERVISOR BUILDING MAINTENANCE by Vladimir Parry [email or web address] <ELECTRONICALLY SIGNED> By: Vladimir Parry MD 12/12/19 0838 1136 1136 Vladimir Parry MD /EPI
--- NOTE | 2019-12-20 11:22 | EKG ---
[facility] [place] [address] ELECTROCARDIOGRAM REPORT Name: KARYNA ULRICH Room #: 405-P [facility] IN M.R.#: [id number] Admission: 12/11/19 Attend Phys: Ty Aden MD Discharge: 12/16/19 Date of : 42 Report #: [id number] THIS REPORT FOR: cc: Rena Wright MD, Carnie MD Couchonnal,Vladimir Hawk MD ~ THIS REPORT FOR: //name// [facility] Test Date: 2019-12-13 Test Time: 07:32:51 Pat Name: KARYNA ULRICH Department: Room: 359 P Gender: M Craft Manager: MACI : 1940 Requested By: Giorgi Parham Order Number: [id number] MD: Vladimir Parry Measurements Intervals [place] Rate: 77 P: 22 NV: 233 QRS: 80 QRSD: 163 T: -16 QT: 418 QTc: 474 Interpretive Statements Sinus rhythm Atrial premature complex Prolonged NV interval Right bundle branch block Compared to ECG 12/12/2019 08:26:58 Electronically Signed On 12-13-2019 11:40:47 MONTESSORI TODDLER TEACHER by Vladimir Parry [email or web address] <ELECTRONICALLY SIGNED> By: Vladimir Parry MD 12/13/19 1140 0732 0732 Vladimir Parry MD /EPI
== END 2019-12-16 18:34 | disposition home or self-care (01) | DRG 177 ==
LOC: ER 11:26 → 3W 12:40 → EROBS 12:40 → 3W 16:01 → 4N 12-14 16:15
PROVIDERS: Internal Medicine Cardiovascular Disease; Nurse Practitioner Family; ADMIT Hospitalist
DX: J69.0 Pneumonitis due to inhalation of food and vomit (principal); N17.0 Acute kidney failure with tubular necrosis; J44.1 Chronic obstructive pulmonary disease with (acute) exacerbation; J44.0 Chronic obstructive pulmonary disease with (acute) lower respiratory infection; I13.0 Hypertensive heart and chronic kidney disease with heart failure and stage 1 through stage 4 chronic kidney disease, or unspecified chronic kidney disease; I47.1 Supraventricular tachycardia; I50.32 Chronic diastolic (congestive) heart failure; D64.9 Anemia, unspecified; I48.91 Unspecified atrial fibrillation; I73.9 Peripheral vascular disease, unspecified; E78.00 Pure hypercholesterolemia, unspecified; I65.29 Occlusion and stenosis of unspecified carotid artery; N26.1 Atrophy of kidney (terminal); F32.9 Major depressive disorder, single episode, unspecified; M10.9 Gout, unspecified; L40.9 Psoriasis, unspecified; I25.10 Atherosclerotic heart disease of native coronary artery without angina pectoris; E78.5 Hyperlipidemia, unspecified; M51.36 Other intervertebral disc degeneration, lumbar region; M54.9 Dorsalgia, unspecified; G89.29 Other chronic pain; G47.00 Insomnia, unspecified; N40.0 Benign prostatic hyperplasia without lower urinary tract symptoms; E55.9 Vitamin D deficiency, unspecified; N18.9 Chronic kidney disease, unspecified; D50.9 Iron deficiency anemia, unspecified; Z95.1 Presence of aortocoronary bypass graft; Z87.01 Personal history of pneumonia (recurrent); Z99.81 Dependence on supplemental oxygen; Z95.5 Presence of coronary angioplasty implant and graft; Z98.1 Arthrodesis status; Z90.89 Acquired absence of other organs; Z95.820 Peripheral vascular angioplasty status with implants and grafts; I25.2 Old myocardial infarction
CPT/HCPCS: 10790; 10879

== ENCOUNTER 2021-01-05 10:18 | Inpatient (IN) | payer OTHER ==
[~2021-01-05] VITALS: Ht 185.4 cm; Wt 73.5 kg
[~2021-01-05 10:18] MED LIST changes: +AUGMENTIN 875-1 EACH PO; +DOXAZOSIN MESYLA4 MG PO; +FLEXERIL PO; +SINGULAIR 10 MG10 M1 PO; -VITAMIN D1000 UNI1 PO; +Vitamin D 1000 UNIT PO
[2021-01-05 10:27] VITALS: BP 142/40
[2021-01-05 11:25] LABS: HEMOGLOBIN 6.9 gm/dL (14.0-18.0); MCV 92.2 fL (80.0-100.0); WBC 6.4 thou/uL (4.0-11.0)
[2021-01-05 11:26] LABS: ABSOLUTE NEUTROPHILS 4.8 thou/uL (1.4-8.2); BASOPHILS 0.8 % (0.0-2.0); EOSINOPHILS 2.1 % (0.0-3.0); HEMATOCRIT 21.4 % (42.0-52.0); LYMPHOCYTES 13.1 % (24.0-44.0); MCH 29.7 pg (26.0-34.0); MCHC 32.3 g/dL (28.0-37.0); MONOCYTES 9.1 % (1.0-8.0); PLATELET COUNT 132 thou/uL (150-400); POLYS 74.9 % (36.0-66.0); RBC 2.32 mil/uL (4.50-6.00); RDW 14.7 % (10.5-14.5)
[2021-01-05 11:32] LABS: ANION GAP 5 mmol/L (7-16); BUN 43 mg/dL (7-18); CALCIUM 8.6 mg/dL (8.5-10.1); CHLORIDE 102 mmol/L (98-107); CO2 31 mmol/L (21-32); CREATININE 1.7 mg/dL (0.7-1.3); GLUCOSE 271 mg/dL (74-106); POTASSIUM 4.3 mmol/L (3.5-5.1); SODIUM 138 mmol/L (136-145)
[2021-01-05 11:43] LABS: ALBUMIN 3.1 g/dL (3.4-5.0); DIRECT BILIRUBIN < 0.1 mg/dL (<0.1-0.2); LIPASE 262 U/L (73-393); SGOT 20 U/L (15-37); SGPT 23 U/L (16-63); TOTAL BILIRUBIN 0.4 mg/dL (0.2-1.0); TOTAL PROTEIN 6.1 g/dL (6.4-8.2); TROPONIN-I <0.06 ng/mL (<0.06)
--- NOTE | 2021-01-05 13:16 | EKG ---
[place] [address] [facility] [address] ELECTROCARDIOGRAM REPORT Name: KARYNA ULRICH Room #: [facility] [id number] Admission: 01/05/21 Attend Phys: Discharge: Date of : 42 Report #: [id number] [facility] ED Test Date: 2021-01-05 Test Time: 11:24:43 Pat Name: KARYNA ULRICH Department: Room: Gender: Manufacture Specialist: JOHNSON DIAZ : 1940 Requested By: Jefferson Rdz Order Number: [id number] MD: Vladimir Parry Measurements Intervals [place] Rate: 57 P: ME: QRS: 82 QRSD: 164 T: -40 QT: 474 QTc: 462 Interpretive Statements Junctional rhythm IVCD, consider atypical RBBB Compared to ECG 12/13/2019 07:32:51 Electronically Signed On 01-05-2021 13:16:08 MINING ENGINEERING TECHNOLOGIST by Vladimir Parry [email or web address] <ELECTRONICALLY SIGNED> By: Vladimir Parry MD 01/05/21 1316 1124 1124 Vladimir Parry MD /OLIVER
[2021-01-05 15:03] VITALS: BP 152/62; BP 155/55; BP 170/62; BP 175/64; BP 182/61
[2021-01-05 16:55] LABS: URINE BILIRUBIN NEGATIVE (Negative); URINE BLOOD NEGATIVE (Negative); URINE CLARITY CLEAR; URINE COLOR YELLOW; URINE GLUCOSE-RANDOM* NEGATIVE (Negative); URINE KETONES NEGATIVE (Negative); URINE LEUKOCYTES-REFLEX NEGATIVE (Negative); URINE NITRITE-REFLEX NEGATIVE (Negative); URINE PROTEIN (DIPSTICK) 2+ (Negative); URINE UROBILINOGEN 0.2 E.U./dl (0.2-1.0)
[2021-01-05 17:09] LABS: HYALINE CASTS 0-3 Few /LPF (None Seen); SQUAMOUS 0-3 Few /LPF (0-3); URINE RBC None Seen /HPF (0-2); URINE WBC-REFLEX None Seen /HPF (0-5)
[2021-01-05 17:10] LABS: CRYSTALS None Seen /LPF (None Seen)
[2021-01-05 17:11] LABS: BACTERIA-REFLEX 1-9 Few /HPF (None Seen); MUCUS 0-3 Light strn/LPF (None Seen)
[2021-01-05 18:07] VITALS: BP 175/54
--- NOTE | 2021-01-05 18:26 | NUR ---
ATTEMPTED TO CALL REPORT X2 FOR UNIT 351 WAS PLACED ON HOLD BOTH TIMES
[2021-01-05 18:35] VITALS: BP 199/70
[2021-01-05 19:48] VITALS: BP 198/82
[2021-01-05 19:57] LABS: HEMATOCRIT 25.9 % (42.0-52.0); HEMOGLOBIN 8.4 gm/dL (14.0-18.0)
[2021-01-05 23:55] VITALS: BP 180/58
[2021-01-06] MEDS ORDERED: CARVEDILOL25 MG PO (02:50)
[2021-01-06] MEDS ORDERED: FUROSEMIDE 40 M40 MG PO (03:00)
[2021-01-06] MEDS ORDERED: LORAZEPAM 1 MG T1 MG PO (03:01)
[2021-01-06] MEDS ORDERED: LIPITOR 40 MG T40 M1 PO (03:03)
[2021-01-06] MEDS ORDERED: ZETIA10 MG PO (03:05)
[2021-01-06] MEDS ORDERED: OCTREOTIDE100 MCG/2 SUBQ (03:08)
[2021-01-06] MEDS ORDERED: VOLTAREN GEL 1100 G2 TOP (03:10)
[2021-01-06] MEDS ORDERED: TYLENOL325 M1 PO (03:15)
[2021-01-06] MEDS ORDERED: NORCO5 PO (03:19)
[2021-01-06] MEDS ORDERED: SYMBICORT160 MCG/4. INH (03:20)
[2021-01-06] MEDS ORDERED: AMOXICILLIN 50500 MG PO (03:26)
[2021-01-06 04:22] LABS: HEMATOCRIT 24.8 % (42.0-52.0); HEMOGLOBIN 8.1 gm/dL (14.0-18.0); MCH 29.2 pg (26.0-34.0); MCHC 32.5 g/dL (28.0-37.0); MCV 89.7 fL (80.0-100.0); RBC 2.76 mil/uL (4.50-6.00); RDW 16.5 % (10.5-14.5)
[2021-01-06 04:36] LABS: CALCIUM 8.7 mg/dL (8.5-10.1); CREATININE 1.4 mg/dL (0.7-1.3); POTASSIUM 4.1 mmol/L (3.5-5.1)
[2021-01-06 05:04] VITALS: BP 157/52
--- NOTE | 2021-01-06 05:42 | NUR ---
PT ADMITTED FROM ER WITH PNEUMONIA AND ANEMIA. IUNIT PRBCS GIVEN IN ER HG BETTER AFTER AND NOW 8.1 THIS AM. RECONCIKLED PTS HOME MEDS. PT REFUSED SEVERAL ORDERED LAST NIGHT. HE STATED HE DOESNOT TAKE THOSE MEDS. NOTIFED HADOOP ENGINEER OF CURRENT MED RECONCILIATION LIST. PT STATED HE HAS SOME ALLERGIES TO MEDS NOT LISTED INCOMPUTER. WILL UPDATE. ORIENTED PT TO . CURRENTLY UNLABORED ON 3LNC. HE STATED HE WEARS 2- L AT HOME. LASIX GIVEN ORDERED. VOIDING CLEAR YELLOW URINE. CAREPLAN INITIATED.
[2021-01-06 07:04] VITALS: BP 189/75
--- NOTE | 2021-01-06 09:21 | NUR ---
INITIAL ASSESSMENT: Received consult for discharge planning. SW reviewed chart and spoke with nursing and attending physician. Pt was admitted from home due to pneumonia/anemia. Pt had blood transfusion. Pt placed in Enhanced Isolation to r/o COVID. Pt had negative COVID test on 01/05. Cardiology consulted today. SW spoke with pt via phone. Introduced role of SW. Pt is alert/orientated x 4. Pt reports he lives at home alone. 2 steps to enter and No steps inside. Pt is on nocturnal O2. Home O2 provided by [employer]. Pt has a concentrator and portable tanks available. Pt states he has a cane at home that he will use occasionally. Pt's PCP is Dr. Rena Wright at [facility]. Pt sees Dr. Bernstein for Hem/Onc as an outpatient. No hx of HH services or post-acute placement. Plan is for to return home when medically stable. SW is following to assist as needed with discharge planning.
--- NOTE | 2021-01-06 11:44 | EKG ---
[place] [address] [facility] [place] [address] ELECTROCARDIOGRAM REPORT Name: KARYNA ULRICH Room #: 351-P ADM IN M.R.#: [id number] Admission: 01/05/21 Attend Phys: Sonal Kendrick MD Discharge: Date of : 42 Report #: [id number] [facility] ED Test Date: 2021-01-05 Test Time: 11:26:52 Pat Name: KARYNA ULRICH Department: Room: 351 P Gender: M Penology Teacher: JOHNSON DIAZ : 1940 Requested By: Sonal Kendrick Order Number: [id number] MD: Regis Colin Measurements Intervals [place] Rate: 59 P: AR: QRS: 79 QRSD: 161 T: -40 QT: 485 QTc: 481 Interpretive Statements Junctional rhythm IVCD, consider atypical RBBB Probable inferior infarct, age indeterminate Baseline wander in lead(s) V5 Compared to ECG 01/05/2021 11:24:43 No significant change Electronically Signed On 01-06-2021 11:44:25 AIR QUALITY MANAGER by Regis Colin [email or web address] <ELECTRONICALLY SIGNED> By: Regis Colin MD, [facility] 01/06/21 1144 1126 1126 Regis Colin MD, [facility] /EPI
[2021-01-06 12:53] VITALS: BP 189/75
[2021-01-06] MEDS ORDERED: ALBUTEROL2.5 MG/0.5 INH (13:16)
[2021-01-06] MEDS ORDERED: MIRALAX17 GM PO (13:16)
[2021-01-06] MEDS ORDERED: CYCLOBENZAPRINE5 MG PO (13:16)
[2021-01-06] MEDS ORDERED: LASIX 40 MG TAB40 M1 PO (13:16)
[2021-01-06] MEDS ORDERED: VITAMIN D325 MC1 PO (13:16)
[2021-01-06] MEDS ORDERED: ATORVASTATIN CA10 MG PO (13:16)
[2021-01-06] MEDS ORDERED: AUGMENTIN 875-1 EACH PO (13:16)
[2021-01-06] MEDS ORDERED: HYDRALAZINE 2525 M1 PO (13:22)
--- NOTE | 2021-01-06 13:57 | 2DMMODE ---
[facility] [place] [address] 2 D/M-MODE ECHOCARDIOGRAM Name: KARYNA ULRICH Room #: 351-P ADM IN M.R.#: [id number] Admission: 01/05/21 Attend Phys: Sonal Kendrick MD Discharge: Date of : 42 Report #: [id number] THIS REPORT FOR: cc: Rena Wright MD, Carnie MD Lundgren,Mikael Ramires MD [facility] ~ APPROVED REPORT Study performed: 01/06/2021 12:47:53 EXAM: Comprehensive 2D, Doppler, and color-flow Echocardiogram Patient Location: Bedside Room #: 351 Status: routine BSA: 1.95 HR: 62 bpm BP: 189/75 mmHg Rhythm: RBBB Other Information Study Quality: Good Technically limited study due to lung disease/interference. Indications Congestive Heart Failure Dyspnea Hx: TAVR, WA, CABG, stents, Afib, CHF, COPD, PVD, HTN, HLP. 2D Dimensions RVDd: 38.04 mm IVSd: 12.29 (7-11mm) LVDd: 48.97 mm PWd: 11.63 (7-11mm) Aortic Root: 27.24 mm Volumes Left Atrial Volume (Systole) Single Plane 4CH: 85.75 mL Single Plane 2CH: 80.50 mL LA ESV Index: 45.00 mL/m2 Aortic Valve AoV Peak Ryan.: 2.82 m/s AO Peak Gr.: 31.82 mmHg LVOT Max P.34 mmHg [facility] [address] [place] [address] 2 D/M-MODE ECHOCARDIOGRAM Name: ULRICHKARYNA Room #: 351-P ADM IN .R.#: [id number] Admission: 01/05/21 Attend Phys: Sonal Kendrick MD Discharge: Date of : 41 Report #: [id number] AO Mean Gr.: 11.34 mmHg AO V2 Mean: 1.50 m/s LVOT Max V: 0.77 m/s AO V2 VTI: 56.82 cm Mitral Valve E/A Ratio: 2.4 MV Decel. Time: 199.99 ms MV E Max Ryan.: 1.28 m/s MV A Ryan.: 0.54 m/s MV PHT: 58.00 ms Pulmonary Valve PV Peak Ryan.: 1.09 m/s PV Peak Gr.: 4.75 mmHg Pulmonary Vein P Vein S: 0.28 m/s P Vein D: 0.84 m/s P Vein S/D Ratio: 0.33 Tricuspid Valve TR Peak Ryan.: 3.26 m/s RAP Estimate: 10.00 mmHg TR Peak Gr.: 42.47 mmHg PA Pressure: 43.00 mmHg Left Ventricle The left ventricle is normal size. Mild hypokinesis of the base of the inferior wall Mild concentric left ventricular hypertrophy. Left ventricular systolic function is normal. LVEF is 60-65%. Moderate diastolic dysfunction Right Ventricle The right ventricle is normal size. The right ventricular systolic function is normal. Atria Moderate biatrial enlargement. Aortic Valve History of TAVR. Peak pressure gradient of 32mmHg; mean of 11mmHg. No aortic regurgitation is present. Mitral Valve Mild mitral annular calcification. Mild mitral regurgitation. No evidence of mitral valve stenosis. Tricuspid Valve [facility] [address] [place] [address] 2 D/M-MODE ECHOCARDIOGRAM Name: ULRICHKARYNA Room #: 351-P [facility] IN ..#: [id number] Admission: 01/05/21 Attend Phys: Sonal Kendrick MD Discharge: Date of : 41 Report #: [id number] The tricuspid valve is normal in structure. Mild to moderate tricuspid regurgitation. Estimated PAP is 45mmHg. Pulmonic Valve The pulmonary valve is normal in structure. Trace pulmonic regurgitation. Great Vessels The aortic root is normal in size. The ascending aorta is normal in size. IVC is dilated and collapses >50% with inspiration. Pericardium There is no pericardial effusion. <Conclusion> Left ventricular systolic function is normal. Mild hypokinesis of the base of the inferior wall LVEF is 60-65%. Moderate diastolic dysfunction Moderate biatrial enlargement. History of TAVR. Peak pressure gradient of 32mmHg; mean of 11mmHg. No aortic regurgitation Mild mitral annular calcification. Mild mitral regurgitation. Mild to moderate tricuspid regurgitation. Estimated pulmonary artery pressure of 45mmHg. There is no pericardial effusion. <ELECTRONICALLY SIGNED> By: Mikael Castelan MD, [facility] 01/06/21 135 135 135 Mikael Castelan MD, FAC /INF
[2021-01-06 14:04] VITALS: BP 182/64
[2021-01-06 15:19] VITALS: BP 174/58
[2021-01-06 15:33] VITALS: BP 189/75
--- NOTE | 2021-01-07 11:31 | HC ---
[facility] [place] [address] CONSULTATION Name: KARYNA ULRICH Room #: 351-P [facility] IN M.R.#: [id number] Admission: 01/05/21 Attend Phys: Sonal Kendrick MD Discharge: 01/06/21 Date of : 41 Report #: [id number] THIS REPORT FOR: cc: Rena Wright MD, Carnie MD McKittrick,Marbin Wang MD ~ DATE OF SERVICE: 01/06/2021 REASON FOR CONSULTATION: Anemia. HISTORY OF PRESENT ILLNESS: The patient is a 80-year-old male that I follow with a history of iron deficiency anemia and chronic kidney disease. The patient had been seen in the office last Tuesday or about 4 days ago, at which time, his hemoglobin was on 6.9. We will arrange for transfusion, which he did receive, but did not feel much better. He had felt worse yesterday. We suggested he come to the Emergency Room for evaluation. Here, there is a question about atelectasis versus pneumonitis and also anemia. He has now received a pint of blood. Feels much better with hemoglobin around 8.1. Note that from the office, his B12 and folate came back replete. He also received IV iron, one of 2 doses with the second to be given next Tuesday. Hopefully, between the erythropoietin administration, receives monthly in the office the iron. His hemoglobin production improved. The patient denies any recent fevers, chills, arm or leg swelling. He does have weakness of a general nature. His appetite has been off a little bit. No vomiting. He does not see blood in his urine or stool. No skin rash. He does have chronic thin skin and has some bruising and ecchymosis from that. SOCIAL HISTORY: The patient's about a year ago. One of his daughters is planning on moving to [place] because of her 's job in the hospital administration. PAST MEDICAL HISTORY: Notable for chronic kidney disease, uses creatinine around 1.3, also history of arteriovenous malformation small intestine followed by DOMINGO DÍAZ with periodic GI evaluations and cautery, also has been on Sandostatin in the past. Also, history of coronary artery disease with stent placement, history of carotid atherosclerosis, COPD, diastolic heart failure, essential hypertension, history of non-STEMI, hyperlipidemia, nephrolithiasis, pulmonary hypertension, peripheral vascular disease, restless legs syndrome and also transcatheter aortic valve replacement in 06/2016. CURRENT MEDICATIONS: Includes lorazepam 1 mg daily, furosemide 40 mg daily, atorvastatin 10 mg daily, cholecalciferol 1000 units at bedtime, montelukast 10 mg at bedtime, trazodone 50 mg at bedtime, losartan 12.5 b.i.d., cyclobenzaprine 5 at bedtime, carvedilol 37.5 b.i.d., albuterol sulfate 2.5 mg every 6 hours p.r.n. inhalation, nasal saline nasal spray q.4 hours p.r.n., Tylenol p.r.n., [address] [address] CONSULTATION Name: KARYNA ULRICH Room #: 351-P [facility] IN M.R.#: [id number] Admission: 01/05/21 Attend Phys: Sonal Kendrick MD Discharge: 01/06/21 Date of : 42 Report #: [id number] zolpidem 5 mg at bedtime p.r.n., MiraLax 17 grams daily p.r.n., Zofran p.r.n., lorazepam had been given once. PHYSICAL EXAMINATION: GENERAL: The patient appears his stated age. He is an elderly man, lying comfortably in a general Med/Surg bed. VITAL SIGNS: His height is reported as 6 feet 1 inches or 185.4 cm, weight 162 pounds or 73.7 kilograms. Blood pressure today is at one time 157/52 and another time 189/75, O2 sat 99-100%, respirations 16 or 18, pulse 66 or 60, temperature is 98 or 99.1. HEENT: Face is symmetrical. MOOD: He is alert, conversant, talkative. NEUROLOGIC: Face is symmetrical. Speech and thought pattern normal. Moving arms and legs appropriately. LYMPHATICS: No enlarged lymph nodes in the supraclavicular, cervical, axillary or inguinal region. ABDOMEN: Scaphoid. No obvious masses. EXTREMITIES: Without clubbing, cyanosis. There is perhaps trace edema. SKIN: He does have some chronic ecchymosis and bruising. LABORATORY DATA: Lab results here notable for creatinine of 1.4. Electrolytes are fairly normal. Liver functions: AST, ALT, total bilirubin normal. Alkaline phosphatase slightly elevated at 152. Total protein slightly low at 6.1, albumin 3.1. White count 7, hemoglobin after transfusion 8.1, MCV 89.2, platelets 138. No acute changes on lab today. Chest x-ray had raised a question of either atelectasis or infiltrate. ASSESSMENT AND PLAN: 1. Anemia, multifactorial, likely related to iron deficiency and chronic kidney disease, status post transfusion, improved, has now received 1 of 2 doses of IV iron as an outpatient is scheduled for second dose this next Tuesday in 3 days. Continue same. 2. Chronic kidney disease. Creatinine is stable. 3. History of arteriovenous malformations in the small intestine. No obvious blood in stool, but that is usually not seen with this patient. Periodic management by GI at also outpatient Sandostatin. 4. Chest x-ray abnormality. Defer to others concerning CAT scan if creatinine improves. 5. Coronary artery disease with stent placement in the past. No elevated BNP. We will defer to others significance of this. 6. Hyperlipidemia, meds per others. 7. Peripheral vascular disease. Management per others. 8. Restless legs. Management per others. 9. History of transcatheter aortic valve replacement, appears to be working [facility] [address] [place] [address] CONSULTATION Name: KARYNA ULRICH Room #: 351-P [facility] IN M.R.#: [id number] Admission: 01/05/21 Attend Phys: Sonal Kendrick MD Discharge: 01/06/21 Date of : 42 Report #: [id number] fine. 10. History of pulmonary hypertension per others. We will follow with you. <ELECTRONICALLY SIGNED> By: Marbin Bernstein MD 01/07/21 1131 0819 0848 Marbin Bernstein MD /nt
== END 2021-01-06 16:38 | disposition home or self-care (01) | DRG 682 ==
LOC: ER 10:18 → 3W 13:49 → EROBS 13:49 → 3W 18:28
PROVIDERS: Nurse Practitioner; ADMIT Internal Medicine; ATTEND Internal Medicine
PROC: 30233N1 Transfusion of Nonautologous Red Blood Cells into Peripheral Vein, Percutaneous Approach (ICD-10-PCS; principal; 2021-01-05)
DX: N17.9 Acute kidney failure, unspecified (principal); J96.01 Acute respiratory failure with hypoxia; J18.9 Pneumonia, unspecified organism; I50.33 Acute on chronic diastolic (congestive) heart failure; I13.0 Hypertensive heart and chronic kidney disease with heart failure and stage 1 through stage 4 chronic kidney disease, or unspecified chronic kidney disease; D64.9 Anemia, unspecified; I35.0 Nonrheumatic aortic (valve) stenosis; J44.9 Chronic obstructive pulmonary disease, unspecified; N18.9 Chronic kidney disease, unspecified; E78.5 Hyperlipidemia, unspecified; I25.10 Atherosclerotic heart disease of native coronary artery without angina pectoris; E78.00 Pure hypercholesterolemia, unspecified; G89.29 Other chronic pain; Z20.822 Contact with and (suspected) exposure to COVID-19; Z60.2 Problems related to living alone; I65.29 Occlusion and stenosis of unspecified carotid artery; M54.9 Dorsalgia, unspecified; F32.9 Major depressive disorder, single episode, unspecified; G25.81 Restless legs syndrome; M10.9 Gout, unspecified; M47.896 Other spondylosis, lumbar region; I73.9 Peripheral vascular disease, unspecified; Z88.8 Allergy status to other drugs, medicaments and biological substances; Z95.1 Presence of aortocoronary bypass graft; Z95.5 Presence of coronary angioplasty implant and graft; Z95.820 Peripheral vascular angioplasty status with implants and grafts; Z95.2 Presence of prosthetic heart valve
CPT/HCPCS: 10879

== ENCOUNTER 2021-02-27 04:22 | Inpatient (IN) | payer OTHER ==
[~2021-02-27] VITALS: Ht 185.4 cm; Wt 71.2 kg
--- NOTE | ~2021-02-27 | EMS ---
[address] [address] EMS Patient Care Report Name: KARYNA ULRICH Room #: PRE MG[place]land#: [id number] Admission: Attend Phys: Discharge: Date of : 42 Report #: [id number] THIS REPORT FOR: //name// Report Transmitted: 02/27/2021 04:52 EMS Care Summary [place], [place]/[facility] Incident [id number] @ 02/27/2021 03:49 Incident Location [address] [place] [address] Patient KARYNA ULRICH Male, 80 Years 1940 Patient Address [address] [place] [address] Patient History Pneumonia,Anemia, Patient Allergies Morphine,Other drug allergy, Patient Medications Unknown, Chief Complaint ABDOMINAL PAIN Disposition Transported No Lights/[place]ypress Dispatch Reason Abdominal Pain/Problems Transported To [facility] Narrative M36 DISPATCHED ON AN ABDOMINAL PAIN. M36 ARRIVED TO ADDRESS TO FIND P37 WALKING PT TO AMBULANCE. PT FOUND HOLDING NOSE WITH TISSUES. PT AIRWAY OPEN AND PATENT. PT SPOKE IN COMPLETE SENTENCES. PT AMBULATORY WITHOUT ASSISTANCE. PT SAT ON STRETCHER AND WAS SECURED WITH SEATBELTS. PT STATED ABDOMINAL PAIN CHIEF [address] [address] EMS Patient Care Report Name: KARYNA ULRICH Room #: PRE Natividad.#: [id number] Admission: Attend Phys: Discharge: Date of : 42 Report #: [id number] COMPLAINT. PT STATED ADDITIONAL COMPLAINT OF NOSEBLEED. PT STATED ABDOMINAL PAIN STARTED AT 2300 YESTERDAY. PT STATED "I FELT A SIMILAR PAIN ON TUESDAY FOR AROUND AN HOUR AND A HALF, BUT IT WENT AWAY." PT STATED HE TRIED LAYING DOWN TO HELP TONIGHT AND IT DID NOT HELP. PT STATED HE IS ON SUPPLEMENTAL OXYGEN AT NIGHT VIA NC. PT STATED HISTORY OF NOSEBLEEDS. P37 STATED PT OXYGEN DID NOT HAVE A HUMIDIFIER ATTACHED. PT DENIED VOMITING, DIARRHEA, CONSTIPATION AND CHANGES IN DIET. PT STATED "LAST MONTH I WAS IN THE HOSPITAL FOR PNEUMONIA AND MY HEMOGLOBIN WAS LOW SO THEY GAVE ME BLOOD." PT STATED HE HAS BEEN FEELING WEAK OFF AND ON FOR THE LAST YEAR. PT STATED "IT GETS BETTER WHEN THEY GIVE ME BLOOD." PT VS MONITORED. PT REPORT GIVEN. PT MOVED TO HOSPITAL BED VIA FOUR PERSON SHEET LIFT. PT CARE AND BELONGINGS TRANSFERRED TO ER STAFF AT [facility] WITHOUT INCIDENT. M36 PLACED BACK IN SERVICE. Initial Vitals @04:07P: 50,R: 12,BP: 126/52,Pain: 6/10,GCS: 15,CO: 8,SpO2: 93,Revised Trauma: 12, @04:15P: 52,R: 12,Pain: 6/10,GCS: 15,CO: 8,SpO2: 94,Revised Trauma: 12, Assessments @04:07MENTAL:Person Oriented,Time Oriented,Event Oriented,Place Oriented,SKIN:Pale,HEENT:Head/Face: Drainage,LUNG SOUNDS:General: Nausea,Right Lower: Tenderness,ABDOMEN:General: Nausea,Right Lower: Tenderness,PELVIS//GI:EXTREMITIES:PULSE:Radial: 2+ Normal,NEURO: Impression Abdominal Pain Procedures @04:07ALS AssessmentResponse: UnchangedSucceeded Timeline 03:48,Call Received 03:48,Dispatch Notified 03:49,Dispatched 03:51,En Route 04:04,On Scene 04:05,At Patient 04:07,ALS Assessment,Response: UnchangedSucceeded, 04:07,BP: 126/52 M,PULSE: 50,RR: 12 R,SPO2: 93 Ox,ETCO2: ,BG: ,PAIN: 6,GCS: 15, 04:11,Depart Scene 04:15,BP: 90/ M,PULSE: 52,RR: 12 R,SPO2: 94 Ox,ETCO2: ,BG: ,PAIN: 6,GCS: 15, 04:19,At Destination 04:30,Call Closed [facility] [address] [place] [address] EMS Patient Care Report Name: KARYNA ULRICH Renny Room #: PRE M.R.#: [id number] Admission: Attend Phys: Discharge: Date of : 42 Report #: [id number] Disclaimer v1.1 Copyright 2020 [employer] This EMS Care Summary contains data elements from the applicable legal record (which may be displayed differently). It is designed to provide pertinent information for the following purposes: continuity of care, clinical quality, and state data reporting. The complete legal record is available to ED staff and administrators of the receiving hospital in [employer]'s Patient Tracker. All data is provided "as is."
[~2021-02-27 04:22] MED LIST changes: +ALBUTEROL2.5 MG/0.5 INH; +AMOXICILLIN 50500 MG PO; +ATORVASTATIN CA10 MG PO; +CYCLOBENZAPRINE5 MG PO; +FUROSEMIDE 40 M40 MG PO; +HYDRALAZINE 2525 M1 PO; +LASIX 40 MG TAB40 M1 PO; +LIPITOR 40 MG T40 M1 PO; +LORAZEPAM 1 MG T1 MG PO; +NORCO5 PO; +OCTREOTIDE100 MCG/2 SUBQ; +SYMBICORT160 MCG/4. INH; +TYLENOL325 M1 PO; +VITAMIN D325 MC1 PO; +VOLTAREN GEL 1100 G2 TOP; +ZETIA10 MG PO
[2021-02-27 04:23] VITALS: BP 153/37
[2021-02-27] MEDS ORDERED: COLCRYS0.6 MG PO (04:29)
[2021-02-27] MEDS ORDERED: TESTOSTERONE75 G1 TOP (04:31)
[2021-02-27] MEDS ORDERED: ALLOPURINOL 10100 M1 PO (04:32)
[2021-02-27 04:44] LABS: ABSOLUTE NEUTROPHILS 5.3 thou/uL (1.4-8.2); BASOPHILS 0.6 % (0.0-2.0); EOSINOPHILS 1.3 % (0.0-3.0); HEMATOCRIT 23.1 % (42.0-52.0); HEMOGLOBIN 7.6 gm/dL (14.0-18.0); MCH 30.4 pg (26.0-34.0); MCHC 32.9 g/dL (28.0-37.0); MCV 92.2 fL (80.0-100.0); MONOCYTES 9.7 % (1.0-8.0); PLATELET COUNT 99 thou/uL (150-400); POLYS 74.4 % (36.0-66.0); RDW 16.5 % (10.5-14.5); WBC 7.1 thou/uL (4.0-11.0)
[2021-02-27 04:57] LABS: ANION GAP 9 mmol/L (7-16); BUN 75 mg/dL (7-18); CALCIUM 8.6 mg/dL (8.5-10.1); CHLORIDE 103 mmol/L (98-107); CO2 26 mmol/L (21-32); CREATININE 1.9 mg/dL (0.7-1.3); GLUCOSE 113 mg/dL (74-106); POTASSIUM 4.8 mmol/L (3.5-5.1); SODIUM 138 mmol/L (136-145)
[2021-02-27 05:01] LABS: ALBUMIN 3.2 g/dL (3.4-5.0); LIPASE 281 U/L (73-393); SGOT 58 U/L (15-37); SGPT 144 U/L (30-65); TOTAL BILIRUBIN 0.3 mg/dL (0.2-1.0); TOTAL PROTEIN 5.9 g/dL (6.4-8.2); TROPONIN-I <0.06 ng/mL (<0.06)
--- NOTE | 2021-02-27 07:05 | EKG ---
[place] [address] [facility] [place] [address] ELECTROCARDIOGRAM REPORT Name: KARYNA ULRICH Room #: 170-10 ADM IN M.R.#: [id number] Admission: 02/27/21 Attend Phys: Allen Orantes Discharge: Date of : 41 Report #: [id number] [facility] ED Test Date: 2021-02-27 Test Time: 05:06:45 Pat Name: KARYNA ULRICH Department: Room: 170 Gender: M Director Of Employer Services: demond : 1940 Requested By: Willie Fishman Order Number: [id number] MD: Regis Colin Measurements Intervals [place] Rate: 48 P: 0 NH: 168 QRS: 79 QRSD: 168 T: -34 QT: 529 QTc: 473 Interpretive Statements Sinus bradycardia Right bundle branch block Compared to ECG 01/05/2021 11:26:52 Junctional rhythm no longer present Myocardial infarct finding no longer present Electronically Signed On 02-27-2021 7:05:31 CDT by Regis Colin [email or web address] <ELECTRONICALLY SIGNED> By: Regis Colin MD, [facility] 02/27/21 0705 0506 0506 Regis Colin MD, FACC /EPI
[2021-02-27 13:12] VITALS: BP 168/50
[2021-02-27 13:30] VITALS: BP 168/50
--- NOTE | 2021-02-27 16:28 | NUR ---
PT ADMITTED RELATED TO ACUTE CHOLECYSTITIS, ANEMIA, RENAL INSUFF, AND EPISTAX. CM REVIEWED CHART AND SPOKE WITH CARE TEAM. CM MET WITH PT AT BEDSIDE THIS DAY. PT APPEARED TO BE A&O X4. CM ROLE INTRODUCED. PT INDICATED THAT HE RESIDES ALONE IN A HOUSE WITH A COUPLE STEPS TO ENTER AND NO STEPS INSIDE. 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 PT INDICATED HE HAS HOME O2 FOR NOC USE THROUGH [employer]. PT INDICATED HE HAD BEEN ON SERVICE [facility] ABOUT TWO WEEKS AGO. PT INDICATED HIS DTR HAD MOVED TO [place] THIS WEEK BUT SHE IS STILL A GOOD EMERGANCY CONTACT. PT'S PCP IS DR. KRISTEN BILL. PT HAD MRCP, GI INDICATED MAY NEED ERCP AND SURGERY CONSULTED. CM FOLLOWING REGARDING DC PLANNING.
--- NOTE | 2021-02-27 18:46 | NUR ---
[age] OLD MALE ADMITTED TO WEST ROOM 456. PT WAS BROUGHT IN TO THE ER AFTER HAVING UPPER ABDOMINAL PAIN. PT ALERT AND ORIENTED TIMES FOUR. VSS, IVF INFUSING PER ORDER. PT NPO FOR SURGERY IN THE MORNING. PT VOIDS PER URINAL. WILL CONTINUE TO MONITOR.
[2021-02-27 20:02] VITALS: BP 139/41
[2021-02-28] VITALS (15 sets, daily range): BP systolic 112–149; BP diastolic 43–81
--- NOTE | 2021-02-28 00:47 | NUR ---
patient aox4 makes needs known. patient denied pain or discomfort. patient requested for sleeping aide. called chief supply chain officer new order given melatonin 5mg prn and may repeat x1.patient npo this shift except for hs meds. dr. mina called and notified that patient is still npo and will take hs meds. patient is on 3 l of oxygen no soa or distress noted. scd on. patient in bed asleep at this time breathing regular and unlaboured.
[2021-02-28 01:33] LABS: URINE BILIRUBIN NEGATIVE (Negative); URINE BLOOD NEGATIVE (Negative); URINE CLARITY CLEAR; URINE COLOR YELLOW; URINE GLUCOSE-RANDOM* NEGATIVE (Negative); URINE KETONES TRACE (Negative); URINE LEUKOCYTES-REFLEX NEGATIVE (Negative); URINE NITRITE-REFLEX NEGATIVE (Negative); URINE PROTEIN (DIPSTICK) 2+ (Negative); URINE SPECIFIC GRAVITY 1.025 (1.005-1.035); URINE UROBILINOGEN 0.2 E.U./dl (0.2-1.0)
[2021-02-28 02:21] LABS: BACTERIA-REFLEX None Seen /HPF (None Seen); CRYSTALS None Seen /LPF (None Seen); HYALINE CASTS 0-3 Few /LPF (None Seen); MUCUS 0-3 Light strn/LPF (None Seen); SQUAMOUS None Seen /LPF (0-3); URINE RBC None Seen /HPF (NONE SEEN); URINE WBC-REFLEX None Seen /HPF (0-5)
[2021-02-28 05:57] LABS: HEMATOCRIT 21.9 % (42.0-52.0); HEMOGLOBIN 7.1 gm/dL (14.0-18.0); MCH 30.6 pg (26.0-34.0); MCHC 32.5 g/dL (28.0-37.0); MCV 94.1 fL (80.0-100.0); RBC 2.32 mil/uL (4.50-6.00); RDW 16.7 % (10.5-14.5); WBC 6.2 thou/uL (4.0-11.0)
[2021-02-28 06:10] LABS: ALBUMIN 2.8 g/dL (3.4-5.0); CREATININE 1.8 mg/dL (0.7-1.3); POTASSIUM 4.6 mmol/L (3.5-5.1); TOTAL BILIRUBIN 0.4 mg/dL (0.2-1.0); TOTAL PROTEIN 5.4 g/dL (6.4-8.2)
--- NOTE | 2021-02-28 10:06 | NUR ---
TAKEN TO SURGERY AT 0730. MORNING MEDS ADMINISTERED WITH VERY SMALL SIP OF WATER.
--- NOTE | 2021-02-28 17:15 | NUR ---
POST SURGERY CHOLANGIOGRAM, PATIENT HAS BEEN MOSLTY PAIN FREE. ONLY ASK FOR PAIN MED THIS PM. HE IS ALERT ORIENTED X4. BREATHING/RESP. STATUS REGULAR AND OXYGEN NEEDS SAME. ABDOMINAL LAPORASCOPIC SITS LOOK CLEAN AND DRY AND DRAINAGE NOTED.WILL CONT WITH PLAN OF CARE.
[2021-03-01] VITALS: BP 150/48
--- NOTE | 2021-03-01 01:10 | NUR ---
ASSESEMENT: PT REMAIN ALERT AND ORIENT TIMES FOUR. INCISIONAL WOUNDS IN ABD (5 TOTAL) INTACT WITH STERI-STRIPS. VSS, AFBRILE. SR-SB PER MONITOR. PAIN MANAGED WITH PRN PAIN MEDICATION. REQUESTING TO GET SOME REST, MELATONIN GIVEN WITH PARTIAL RESULTS PER PT. TOLERATING 3 LITER OF OXYGEN. SLOW PROGRESS TOWARDS DC GOALS. WILL CONTINUE TO MONITOR.
[2021-03-01 04:53] LABS: HEMATOCRIT 23.5 % (42.0-52.0); HEMOGLOBIN 7.7 gm/dL (14.0-18.0); MCH 30.6 pg (26.0-34.0); MCHC 32.6 g/dL (28.0-37.0); MCV 93.8 fL (80.0-100.0); RBC 2.51 mil/uL (4.50-6.00); RDW 16.8 % (10.5-14.5)
[2021-03-01 05:06] LABS: CREATININE 2.3 mg/dL (0.7-1.3); POTASSIUM 5.5 mmol/L (3.5-5.1)
[2021-03-01 07:24] VITALS: BP 163/59
[2021-03-01 09:33] LABS: ALBUMIN 2.9 g/dL (3.4-5.0); DIRECT BILIRUBIN 0.1 mg/dL (<0.1-0.2); TOTAL BILIRUBIN 0.2 mg/dL (0.2-1.0); TOTAL PROTEIN 5.2 g/dL (6.4-8.2)
[2021-03-01 15:40] VITALS: BP 162/63
--- NOTE | 2021-03-01 17:14 | NUR ---
Patient reported passing gas, no bowlmovement yet; uriated twice during the shift, 460 ml output; bladder scanning was done around 5pm: over 920 ml residula. Texted to Dr. Aden, awaiting response.
[2021-03-01 20:03] VITALS: BP 146/64
--- NOTE | 2021-03-02 02:24 | NUR ---
PT CARE ASSUMED WITH PT IN BED WATCHING TV.PT IS A/O X4.PT IS UP WITH STANDBY ASSIST.PT USES URINAL TO VOID.IV ACCESS ON RFA WITH NS AT 80CC/HR.PT REFUSE CYCLOBENZAPRINE AT BEDTIME.PT HAS 5LAP SITE WITH DERMABAND ALL C/D/I WITH NO REDNESS .PT NPO FROM MIDNIGHT FOR ERCP TODAY.PT ON 2L OF O2 VIA NC.WILL CONTINUE TO MONITOR
[2021-03-02 04:57] VITALS: BP 148/51
[2021-03-02 05:36] LABS: HEMOGLOBIN 7.3 gm/dL (14.0-18.0); MCH 30.4 pg (26.0-34.0); MCHC 33.1 g/dL (28.0-37.0); RBC 2.39 mil/uL (4.50-6.00); RDW 16.5 % (10.5-14.5); WBC 8.2 thou/uL (4.0-11.0)
[2021-03-02 05:52] LABS: CALCIUM 7.7 mg/dL (8.5-10.1); CREATININE 2.1 mg/dL (0.7-1.3); POTASSIUM 4.8 mmol/L (3.5-5.1)
[2021-03-02 07:31] VITALS: BP 147/49
--- NOTE | 2021-03-02 13:41 | NUR ---
PT TO HAVE ERCP THIS DAY. CARE TEAM INDICATED THAT PT MAY BE MEDICALLY STABLE TO DC HOME AFTER PROCEDUE DEPENDING ON FINDINGS. CM FOLLOWING SHOULD ANY DC NEEDS ARISE.
[2021-03-02 16:30] VITALS: BP 146/58
--- NOTE | 2021-03-02 17:18 | NUR ---
ASSESSMENT CHARTED. PT ALERT AND ORIENTED. VSS. HAD ERCP TODAY. PRN PAIN MED GIVEN WITH PARTIAL RELIEF. NO CONCERNS AT THIS TIME. PT PROGRESSING WELL TOWARDS DISCHARGE GOAL.
[2021-03-02 19:48] VITALS: BP 168/60
--- NOTE | 2021-03-03 05:44 | NUR ---
Assumed pt care at 1900. A/OX4, VSS. Denies pain on assessment. C/o heartburn, notified order written for Mylanta administered and pt verbalized relief. Up ad franny,encouraged to call for help as needed. SR/SB on telemetry. Lap sites C/D/I with dermabond. Resting quietly at this time,will continue to monitor pt.
[2021-03-03 07:26] VITALS: BP 151/63
[2021-03-03 12:09] LABS: ALBUMIN 2.6 g/dL (3.4-5.0); DIRECT BILIRUBIN 1.2 mg/dL (<0.1-0.2); TOTAL BILIRUBIN 1.3 mg/dL (0.2-1.0); TOTAL PROTEIN 4.9 g/dL (6.4-8.2)
[2021-03-03 13:38] VITALS: BP 151/63
--- NOTE | 2021-03-03 13:41 | NUR ---
CARE TEAM INDICATED THAT PT IS MEDICALLY STABLE TO DC HOME TO SELF CARE THIS DAY. NO OTHER CM INTERVENTION INDICATED. CASE CLOSED.
[2021-03-03 14:34] VITALS: BP 151/63
--- NOTE | 2021-03-03 14:36 | NUR ---
ASSUMED CARE OF PATIENT AT SHIFT CHANGE; 0700. ASSESSMENT CHARTED. MEDS ADMINISTERED PER EMAR. VSS. PATIENT IS A&OX4 AND ABLE TO MAKE NEEDS KNOWN. PATIENT IS INDEPENDENT W STEADY GAIT AND NO ISSUES. DENIES PAIN OR DISCOMFORT. DENIES N/V/D AND TOLERATES DIET WELL. PATIENT WAS SEEN BY PROVIDERS AND DEEMED MEDICALLY STABLE TO DISCHARGE. ORDERS IN AND PATIENT NOTIFIED. PATIENT VOICED NO FURTHER NEEDS. EDUCATED ON DISCHARGE. PROVIDED WRITTEN INFO ON INSTRUCTIONS AND PRESCRIPTIONS; ETC. IV DISCONTINUED. WILL DISCHARGE W SISTER
--- NOTE | 2021-03-03 18:06 | PATH ---
[facility] [place] [address] PATHOLOGY RPT PROCEDURE Name: KARYNA ULRICH Renny Room #: 456-P [facility] IN M.R.#: [id number] Admission: 02/27/21 Date of : 42 Discharge: 03/03/21 Report #: [id number] Path Case #: [id number] [facility] Accession Number: [id number] . 01 Material submitted: . gallbladder - GALLBLADDER . 01 Clinical history: . ACUTE CHOLECYSTITIS; ANEMIA; RENAL INSUFFICIENCY; EPISTAXIS PREOP DIAGNOSIS SAME POSTOP DIAGNOSIS LAPAROSCOPIC CHOLECYSTECTOMY WITH G.... . 02 Diagnosis: Gallbladder, cholecystectomy: - Moderate chronic cholecystitis. (IUV:pit 03/03/2021) QTP 03/03/2021 1339 Local . 02 Electronically signed: . Kristen Joshi MD, Pathologist NPI- [id number] . 01 Gross description: . Fixative: Formalin Labeled: "Karyna Ulrich and gallbladder" Specimen received: An intact gallbladder Dimensions: 10.0 x 4.3 x 1.8 cm Weight: 34 g Serosa: Dust pink-marie Lymph node: Not present Mucosa: Velvety mottled marie-brown Average wall thickness: 0.2-0.3 Calculi: No calculi present Abnormalities: No grossly apparent lesions A1- Silvering Applicator body, fundus, and the cystic duct margin (red inked). (J; 03/02/2021) BLJ/J 03/02/2021 [facility] Local . 02 Pathologist provided ICD-10: K81.1 . 02 CPT . 482132 Specimen Comment: A courtesy copy of this report has been sent to [phone] Specimen Comment: [phone], Specimen Comment: Report sent to ,DR ENCINAS / [place] [address] PATHOLOGY RPT PROCEDURE Name: KARYNA ULRICH Room #: 456-P DIS IN .R.#: [id number] Admission: 02/27/21 Date of : 42 Discharge: 03/03/21 Report #: [id number] Path Case #: [id number] Performed at: 01 [facility] [place] [address] [facility] [address], [place] [id number] MD Dorian Rosario MD Phone: [phone] Performed at: [address] [id number] MD Kristen Joshi MD Phone: [phone]
--- NOTE | 2021-03-04 10:17 | O ---
[facility] [place] [address] OPERATIVE REPORT Name: KARYNA ULRICH Room #: 456-P [facility] IN M.R.#: [id number] Admission: 02/27/21 Attend Phys: Ty Aden MD Discharge: 03/03/21 Date of : 42 Report #: [id number] THIS REPORT FOR: cc: Rena Wright MD, Carnie MD [place],Patrick Gonzales MD ~ DOC #: [id number] cc: Jayy Hamilton MD, Dony Dunn MD, MD Patrick Trevizo MD DATE OF SERVICE: 03/02/2021 PROCEDURE PERFORMED: ERCP with sphincterotomy and balloon sweeps and brushings. HISTORY OF PRESENT ILLNESS: The patient is a 80-year-old male who was admitted with abdominal pain and was noted to have elevated liver function test. CT scan of the abdomen and pelvis showing possible gallbladder wall thickening and possible gallstones. He also underwent an ultrasound of the abdomen on 02/27/2021 that showed findings concerning for acute cholecystitis and large common bile duct with debris concerning for choledocholithiasis. Therefore, an MRI MRCP was performed on 02/27/2021 that showed a distended gallbladder with some gallbladder wall thickening and pericholecystic fluid near the gallbladder fossa, which could represent acute cholecystitis. The common bile duct and common hepatic ducts were poorly visualized because of motion artifact. The distal common bile duct is dilated measuring 10 mm, making evaluation for biliary filling defect or stone limited. The patient underwent a laparoscopic cholecystectomy by Dr. Jayy Hamilton on 02/28/2021, cholangiogram showing severely dilated common bile duct with narrow tapering at the distal portion. Therefore, plan is for ERCP today. The patient denies any significant abdominal pain from recent surgery. I reviewed his labs. Hemoglobin is 7.3 and this has been fairly stable. His liver function tests show yesterday a total bilirubin of 0.2, AST 39, ALT 95, alkaline phosphatase 246. Plan is for ERCP. DESCRIPTION OF PROCEDURE: Risks and benefits of the procedure were explained to the patient, those risks including but not limited to bleeding, perforation, and the risk of sedation as well as the potential risk for post-ERCP pancreatitis. He understood these risks and gave informed consent. The procedure is performed under general anesthesia in the operating room. The patient was already on IV Zosyn prior to the procedure. 100 mg indomethacin suppository was given rectally prior to the procedure. Next, using a standard Olympus ERCP side-viewing scope, the scope was placed in the patient's mouth and advanced under direct vision through the esophagus, stomach and into the second portion of the duodenum. The major papilla was identified. It was somewhat abnormal in appearance, as though it appeared to be somewhat everted, but otherwise no obvious mass or abnormality was noted. Next, using a Grey-Cook 0.025 dome tip sphincterotome catheter, the common bile duct was cannulated without difficulty and a cholangiogram was [facility] [address] [place] [address] OPERATIVE REPORT Name: KARYNA ULRICH Room #: 456-P DIS IN M.R.#: [id number] Admission: 02/27/21 Attend Phys: Ty Aden MD Discharge: 03/03/21 Date of : 42 Report #: [id number] obtained. The common bile duct was significantly dilated to approximately 15 mm. Surgical clips were noted at the cystic duct. There was no evidence of bile leak. The intrahepatic ducts were mildly dilated at the distal portion. Further distally, these were normal. There was no obvious stricture in the distal common bile duct. There was an abrupt narrowing at the very distal portion, suggesting a possible papillary stenosis. On several images, a possible tiny diverticulum was noted in this area as well. No obvious filling defects were seen. At this point, a wire was advanced into the common bile duct without difficulty. Next, a sphincterotomy was performed without difficulty. Good bile drainage was noted after sphincterotomy. Next, I performed several balloon sweeps. No obvious debris or stones were noted with the balloon sweeps. At this point, a balloon occlusion cholangiogram was obtained and similar findings were again noted just showing an abrupt tapering at the very distal duct. The segment is very short, just what appears to be a few millimeters in length. At this point, the balloon catheter was removed and I did obtain brushings of the very distal common bile duct. The catheter was then removed as well as a wire. The scope was withdrawn and the procedure terminated. The patient tolerated the procedure well. IMPRESSION: 1. Dilated common bile duct with abrupt narrowing at the very distal portion. This may be a result of a papillary stenosis. I performed a sphincterotomy today. Several balloon sweeps were performed. No filling defects or debris was noted on balloon sweeps. I doubt this represents a malignancy. However, brushings were obtained of the distal common bile duct at the very tapered point. The segment was again very small in length. 2. Surgical changes of cholecystectomy noted. No evidence of bile leak. RECOMMENDATIONS: 1. Observe the patient post-procedure. 2. Await brushings. 3. Would monitor liver function tests. If these normalize over time in the near future and brushings are negative, likely recommend simply observing. If, however, they remain elevated or brushings are abnormal, the patient will need an endoscopic ultrasound in the future. Thank you for allowing me to participate in his care. Patrick Rainey MD [facility] [address] [address] OPERATIVE REPORT Name: ULRICHKARYNA Room #: 456-P DIS IN M.R.#: [id number] Admission: 02/27/21 Attend Phys: Ty Aden MD Discharge: 03/03/21 Date of : 42 Report #: [id number] <ELECTRONICALLY SIGNED> By: Patrick Rainey MD 03/04/21 1017 1508 1850 Patrick Rainey MD /nt
--- NOTE | 2021-03-04 16:06 | PATH ---
[facility] [address] [place] [address] PATHOLOGY RPT PROCEDURE Name: KARYNA ULRICH Room #: 456-P DIS IN M.R.#: [id number] Admission: 02/27/21 Date of : 42 Discharge: 03/03/21 Report #: [id number] Path Case #: [id number] Note [facility] Accession Number: [id number] TESTS RESULT FLAG UNITS REF RANGE LAB Clinician Provided Cytology Information No. of containers..01 Other (Miscellaneous) Source: DISTAL CBD BRUSHING DIAGNOSIS: DISTAL CBD BRUSHING NEGATIVE FOR MALIGNANT CELLS. REACTIVE BILE DUCT EPITHELIUM. MACROPHAGES AND MILD CHRONIC INFLAMMATION. Pathologist ICD10: 02 K81.0 Signed out by: Kristen Joshi MD, Pathologist NPI- [id number] Performed by: Hanna Tom, Production Supervisor Trainee ([facility]) Gross description: 01 1 TP /PIERCE 03/03/2021 2159 Local FLAG LEGEND: L-Low Normal,H-High Normal,LL-Alert Low,HH-Alert High <-Panic Low,>-Panic High,A-Abnormal,AA-Critical Abnormal Performed at: [address] [place] [address] Dorian Rosario MD, [address] [address] Kristen Joshi MD, Performed at: [address], [place], [place] [id number] MD Dorian Rosario MD Phone: [phone]
--- NOTE | 2021-03-12 08:42 | O ---
[facility] [place] [address] [place] [address] OPERATIVE REPORT Name: KARYNA ULRICH Room #: 456-P [facility] IN M.R.#: [id number] Admission: 02/27/21 Attend Phys: Ty Aden MD Discharge: 03/03/21 Date of : 42 Report #: [id number] THIS REPORT FOR: cc: Rena Wright MD, Carnie MD Patterson,Jayy Alfaro MD ~ DOC #: [id number] Jayy Hamilton MD DATE OF SERVICE: 02/28/2021 PREOPERATIVE DIAGNOSIS: Acute cholecystitis with dilated common bile duct. POSTOPERATIVE DIAGNOSIS: Acute cholecystitis with dilated common bile duct. PROCEDURE: Laparoscopic cholecystectomy with intraoperative cholangiogram. SURGEON: Jayy Hamilton M.D. ANESTHESIA: General. ESTIMATED BLOOD LOSS: 20 mL SPECIMENS: Gallbladder. DESCRIPTION OF PROCEDURE: After informed consent was obtained, the patient was brought to the operating room and placed supine. SCDs were placed and working, preoperative antibiotics were administered, general anesthesia was induced. The abdomen was prepped and draped in the usual sterile fashion. A 10 mm incision was made above the umbilicus. Fascia was incised and a trocar was placed. Pneumoperitoneum was established. Three right upper quadrant 5 mm ports were placed under direct vision. The patient was placed in the reverse Trendelenburg position. The gallbladder was grasped and retracted cephalad. The infundibulum was grasped and retracted laterally. I dissected out the cystic duct and the cystic artery. Cystic duct was dilated. A ductotomy was made. Cholangiogram catheter was inserted. This demonstrated filling of the cystic duct, common bile duct. The common bile duct was severely dilated. There appeared to be two small filling defects on my read of the fluoroscopic images. No contrast was seen in the duodenum. All of the structures having been fully identified with the proximal common hepatic duct readily visualized on the actual laparoscopic images. The cholangiogram catheter was removed. The cystic duct was clipped and ligated with 2 PDS Endoloops to make sure that all of the cystic duct was included in the PDS ligature. The initial PDS was to distal and there was still bile duct that was not tied off. [address] [address] OPERATIVE REPORT Name: MOJGANKARYNA Renny Room #: 456-P [facility] IN .R.#: [id number] Admission: 02/27/21 Attend Phys: Ty Aden MD Discharge: 03/03/21 Date of : 42 Report #: [id number] The cystic artery was clipped and ligated with a clip consumer affairs director. The gallbladder was then taken off the liver bed with electrocautery. It was placed into an Endopouch and removed. There was excellent hemostasis at this time. The ports were removed under direct vision. The fascia was closed with a bwxlvi-[id number] 0 Vicryl. Skin was closed with 4-0 Monocryl. Incisions were sealed with Steri-Strips. COMPLICATIONS: None. DISPOSITION: The patient was taken to recovery in satisfactory condition. MD ROSIE Stark/ANA LAURA <ELECTRONICALLY SIGNED> By: Jayy Hamilton MD 03/12/21 0842 0915 1104 Jayy Hamilton MD /nt
== END 2021-03-03 15:27 | disposition home or self-care (01) | DRG 417 ==
LOC: ER 04:22 → EROBS 06:50 → 4W 06:50
PROVIDERS: Emergency Medicine; Hospitalist; Nurse Practitioner; Surgery; ADMIT Hospitalist; ATTEND Hospitalist
PROC: BF101ZZ Fluoroscopy of Bile Ducts using Low Osmolar Contrast (ICD-10-PCS; principal; 2021-02-28)
PROC: 0FT44ZZ Resection of Gallbladder, Percutaneous Endoscopic Approach (ICD-10-PCS; principal; 2021-02-28)
PROC: BF101ZZ Fluoroscopy of Bile Ducts using Low Osmolar Contrast (ICD-10-PCS; 2021-03-02)
PROC: 0F798ZZ Dilation of Common Bile Duct, Via Natural or Artificial Opening Endoscopic (ICD-10-PCS; 2021-03-02)
DX: K80.42 Calculus of bile duct with acute cholecystitis without obstruction (principal); N17.0 Acute kidney failure with tubular necrosis; E43 Unspecified severe protein-calorie malnutrition; I13.0 Hypertensive heart and chronic kidney disease with heart failure and stage 1 through stage 4 chronic kidney disease, or unspecified chronic kidney disease; I50.32 Chronic diastolic (congestive) heart failure; E78.00 Pure hypercholesterolemia, unspecified; I73.9 Peripheral vascular disease, unspecified; F32.9 Major depressive disorder, single episode, unspecified; M10.9 Gout, unspecified; N18.9 Chronic kidney disease, unspecified; J44.9 Chronic obstructive pulmonary disease, unspecified; R00.1 Bradycardia, unspecified; K83.8 Other specified diseases of biliary tract; D64.9 Anemia, unspecified; D69.6 Thrombocytopenia, unspecified; E78.5 Hyperlipidemia, unspecified; I25.10 Atherosclerotic heart disease of native coronary artery without angina pectoris; G89.4 Chronic pain syndrome; Z95.5 Presence of coronary angioplasty implant and graft; Z88.8 Allergy status to other drugs, medicaments and biological substances; I25.2 Old myocardial infarction; Z86.16 Personal history of COVID-19; Z79.899 Other long term (current) drug therapy; Z87.891 Personal history of nicotine dependence; Z20.822 Contact with and (suspected) exposure to COVID-19
CPT/HCPCS: 10045; 50101; 50411; 50555; 51297; 51489; 52265; 52266; 53307; 53312; 53314; 55245; 55317; 56462; 56525; 56526; 58574; 62110; 62900; 70005

== ENCOUNTER 2021-03-06 10:53 | Emergency (ER) | payer OTHER ==
[~2021-03-06] VITALS: Ht 185.4 cm; Wt 71.2 kg
[~2021-03-06 10:53] MED LIST changes: +ALLOPURINOL 10100 M1 PO; +COLCRYS0.6 MG PO; +TESTOSTERONE75 G1 TOP
[2021-03-06 11:34] LABS: ABSOLUTE NEUTROPHILS 4.2 thou/uL (1.4-8.2); BASOPHILS 0.7 % (0.0-2.0); EOSINOPHILS 2.1 % (0.0-3.0); HEMATOCRIT 22.5 % (42.0-52.0); HEMOGLOBIN 7.4 gm/dL (14.0-18.0); LYMPHOCYTES 13.4 % (24.0-44.0); MCH 30.4 pg (26.0-34.0); MCHC 32.7 g/dL (28.0-37.0); MONOCYTES 7.2 % (1.0-8.0); PLATELET COUNT 121 thou/uL (150-400); POLYS 76.6 % (36.0-66.0); RBC 2.42 mil/uL (4.50-6.00); RDW 16.4 % (10.5-14.5); WBC 5.5 thou/uL (4.0-11.0)
[2021-03-06] MEDS ORDERED: LASIX 40 MG TAB40 MG PO (11:39)
[2021-03-06 11:43] LABS: CALCIUM 9.1 mg/dL (8.5-10.1); CREATININE 1.5 mg/dL (0.7-1.3); POTASSIUM 4.6 mmol/L (3.5-5.1)
[2021-03-06 11:52] LABS: TROPONIN-I 0.07 ng/mL (<0.06)
[2021-03-06 12:42] LABS: ALBUMIN 2.9 g/dL (3.4-5.0); DIRECT BILIRUBIN 0.1 mg/dL (<0.1-0.2); TOTAL BILIRUBIN 0.3 mg/dL (0.2-1.0); TOTAL PROTEIN 5.8 g/dL (6.4-8.2)
[2021-03-06] MEDS ORDERED: PREDNISONE 20 M20 MG PO (13:55)
[2021-03-06] MEDS ORDERED: ALBUTEROL2.5 MG/0.1 INH (13:55)
[2021-03-06] MEDS ORDERED: NEBULIZER MISCELL (13:55)
[2021-03-06 14:52] VITALS: BP 194/75
--- NOTE | 2021-03-06 15:55 | EKG ---
[place] [address] [email or web address] [place] [address] ELECTROCARDIOGRAM REPORT Name: KARYNA ULRICH Room #: DEP Kaz#: [id number] Admission: 03/06/21 Attend Phys: Discharge: 03/06/21 Date of : 42 Report #: [id number] [facility] ED Test Date: 2021-03-06 Test Time: 11:06:42 Pat Name: KARYNA ULRICH Department: Room: Gender: M Pharmacist Hospital: [facility] : 1940 Requested By: Jefferson Rdz Order Number: [id number] MD: Regis Colin Measurements Intervals [place] Rate: 66 P: TX: QRS: 127 QRSD: 157 T: -45 QT: 444 QTc: 466 Interpretive Statements Atrial fibrillation Nonspecific intraventricular conduction delay Compared to ECG 02/27/2021 05:06:45 Intraventricular conduction delay now present Sinus bradycardia no longer present Right bundle-branch block no longer present Electronically Signed On 03-06-2021 15:55:27 CDT by Regis Colin [email or web address] <ELECTRONICALLY SIGNED> By: Regis Colin MD, [facility] 03/06/21 1555 D: 04/1105 05 Regis Colin MD, FACC /EPI
== END 2021-03-06 14:57 | disposition home or self-care (01) ==
LOC: ER 10:53
PROVIDERS: Nurse Practitioner
DX: J44.9 Chronic obstructive pulmonary disease, unspecified (principal); Z20.822 Contact with and (suspected) exposure to COVID-19; E87.70 Fluid overload, unspecified; I13.0 Hypertensive heart and chronic kidney disease with heart failure and stage 1 through stage 4 chronic kidney disease, or unspecified chronic kidney disease; N18.9 Chronic kidney disease, unspecified; I50.9 Heart failure, unspecified; M10.9 Gout, unspecified; Z88.8 Allergy status to other drugs, medicaments and biological substances; Z79.899 Other long term (current) drug therapy

== ENCOUNTER 2021-12-05 21:34 | Emergency (ER) | payer OTHER ==
[~2021-12-05] VITALS: Ht 185.4 cm; Wt 68.0 kg
[~2021-12-05 21:34] MED LIST changes: +ALBUTEROL2.5 MG/0.1 INH; +LASIX 40 MG TAB40 MG PO; +NEBULIZER MISCELL; +PREDNISONE 20 M20 MG PO
== END 2021-12-06 00:16 | disposition home or self-care (01) ==
LOC: ER 21:34
DX: R04.0 Epistaxis (principal); I12.9 Hypertensive chronic kidney disease with stage 1 through stage 4 chronic kidney disease, or unspecified chronic kidney disease; N18.9 Chronic kidney disease, unspecified; J44.9 Chronic obstructive pulmonary disease, unspecified; Z90.89 Acquired absence of other organs; Z79.899 Other long term (current) drug therapy; Z88.8 Allergy status to other drugs, medicaments and biological substances